=== PATIENT | female | born 1950 | race Caucasian/White ===

== ENCOUNTER 2019-08-08 13:51 | Inpatient (IN) | payer MEDICARE ==
[~2019-08-08] VITALS: Ht 162.6 cm; Wt 74.1 kg
[~2019-08-08 13:51] MED LIST: DULO60CA PO; INSUINJ37 SUBCUT; METF-370 PO
[2019-08-08 14:08] VITALS: BP 148/96
[2019-08-08] MEDS ORDERED: NITROGLYCERIN 0.4 MG SL TAB SL PRN (14:30)
[2019-08-08] MEDS ORDERED: HYDROcodone-ACET 5/325MG TAB PO PRN (14:30)
[2019-08-08] MEDS ORDERED: DEXTROSE (50%) 50ML SYRG IV PRN (14:45)
[2019-08-08] MEDS ORDERED: ALBUTEROL SULF 2.5 MG/0.5ML(0.5%) NEB SOLN NEB PRN (14:45)
[2019-08-08] MEDS ORDERED: IPRATROPIUM BROM 0.5 MG/2.5ML INH SOL NEB PRN (14:45)
[2019-08-08] MEDS ORDERED: ONDANSETRON HCL 4 MG/2 ML VIAL IV PRN (14:45)
[2019-08-08] MEDS ORDERED: ACETAMINOPHEN 325 MG TAB PO PRN (14:45)
[2019-08-08] MEDS ORDERED: VANCOMYCIN PER PHARMACY 0 MG IV SCH (14:45)
[2019-08-08] MEDS: SODIUM CHLORIDE 0.9% 1,000 ML IV SCH (15:27)
[2019-08-08] MEDS ORDERED: HYDR1TAB97 (15:36)
[2019-08-08] MEDS ORDERED: BACL10TA (15:36)
[2019-08-08] MEDS ORDERED: GEMF600T7 (15:36)
[2019-08-08] MEDS ORDERED: GABA300C10 (15:36)
[2019-08-08 16:02] LABS: Basophils # (auto) 0.1 uL; Eosinophils # (auto) 0.2 uL; Eosinophils % (auto) 3.3 % (0.0-7.0); Hematocrit 40.7 % (36.0-46.0); Hemoglobin 13.5 g/dL (12.2-16.2); Lymphocytes # (auto) 2.1 uL; Lymphocytes % (auto) 40.4 % (10.0-50.0); Mean Corpuscular Hemoglobin 31.1 pg (28.0-32.0); Mean Corpuscular Hgb Conc. 33.2 g/dL (32.0-36.0); Mean Corpuscular Volume 93.7 fL (80.0-100.0); Monocytes # (auto) 0.6 uL; Monocytes % (auto) 12.2 % (0.0-12.0); Neutrophils # (auto) 2.2 uL; Neutrophils % (auto) 43.1 % (37.0-80.0); Nucleated Red Blood Cells % 0.1 %; Platelet Count (auto) 112 10^3/uL (140-450); Red Blood Cells 4.35 10^6/uL (4.0-5.20); Red Cell Distribution Width 14.8 % (11.8-14.3); White Blood Cell 5.2 10^3/uL (4.4-10.8)
[2019-08-08 16:15] LABS: Albumin 3.7 g/dL (3.4-5.0); Calcium 9.3 mg/dL (8.5-10.1); Potassium 4.1 mmol/L (3.5-5.1)
[2019-08-08 16:18] LABS: BUN/Creatinine Ratio 15.2; Bilirubin, Total 0.2 mg/dL (0.2-1.0); Total Protein 7.6 g/dL (6.4-8.2)
[2019-08-08] MEDS: MORPHINE SULF INJ 2 MG/ML SYRINGE 1ML IV PRN ×3 (16:57→23:33)
[2019-08-08 17:00] VITALS: BP 152/98
[2019-08-08] MEDS: InsuLIN REG 1unit/0.01ml Soln (100units/ml) SC SCH ×2 (17:00→22:00)
[2019-08-08] MEDS: ACCU-CHEK COMFORT CURVE STRIP VI SCH ×2 (17:06→22:00)
[2019-08-08] MEDS ORDERED: PIPERACILLIN-TAZOB 3.375GM 100 ML IV SCH (18:00)
[2019-08-08] MEDS: PROMETHAZINE W/CODEINE 5 ML ORAL SYRUP PO PRN (18:15)
[2019-08-08] MEDS ORDERED: VANCOMYCIN 1GM/250ML 250 ML IV SCH (20:00)
[2019-08-08 21:55] VITALS: BP 126/64
[2019-08-08] MEDS: GABAPENTIN 300 MG CAP PO SCH (23:32)
[2019-08-08] MEDS: GEMFIBROZIL 600 MG TAB PO SCH (23:32)
[2019-08-08] MEDS: DULoxetine HCL 30 MG CAP PO SCH (23:32)
[2019-08-09] MEDS: PROMETHAZINE W/CODEINE 5 ML ORAL SYRUP PO PRN ×3 (00:48→19:40)
[2019-08-09] MEDS: PIPERACILLIN-TAZOB 3.375GM 100 ML IV SCH ×4 (02:30→19:41)
[2019-08-09] MEDS: MORPHINE SULF INJ 2 MG/ML SYRINGE 1ML IV PRN ×7 (03:25→22:59)
[2019-08-09 03:55] VITALS: BP 126/64
[2019-08-09 05:00] VITALS: BP 115/66
[2019-08-09 06:05] LABS: Basophils # (auto) 0 uL; Basophils % (auto) 0.7 % (0.0-2.0); Eosinophils # (auto) 0.2 uL; Eosinophils % (auto) 4.5 % (0.0-7.0); Hematocrit 38.7 % (36.0-46.0); Hemoglobin 13.1 g/dL (12.2-16.2); Lymphocytes # (auto) 1.5 uL; Lymphocytes % (auto) 28.3 % (10.0-50.0); Mean Corpuscular Hemoglobin 31.5 pg (28.0-32.0); Mean Corpuscular Hgb Conc. 33.9 g/dL (32.0-36.0); Mean Corpuscular Volume 92.8 fL (80.0-100.0); Monocytes # (auto) 0.6 uL; Monocytes % (auto) 10.9 % (0.0-12.0); Neutrophils # (auto) 2.9 uL; Neutrophils % (auto) 55.6 % (37.0-80.0); Platelet Count (auto) 100 10^3/uL (140-450); Red Blood Cells 4.17 10^6/uL (4.0-5.20); Red Cell Distribution Width 14.5 % (11.8-14.3); White Blood Cell 5.2 10^3/uL (4.4-10.8)
[2019-08-09 06:27] LABS: Calcium 8.5 mg/dL (8.5-10.1); Potassium 3.8 mmol/L (3.5-5.1)
[2019-08-09 06:29] LABS: BUN/Creatinine Ratio 18.2
[2019-08-09] MEDS: ACCU-CHEK COMFORT CURVE STRIP VI SCH ×4 (06:44→23:06)
[2019-08-09] MEDS: InsuLIN REG 1unit/0.01ml Soln (100units/ml) SC SCH ×4 (06:44→22:00)
[2019-08-09] MEDS: GABAPENTIN 300 MG CAP PO SCH ×3 (06:45→22:06)
[2019-08-09 08:36] VITALS: BP 128/72
[2019-08-09] MEDS: DULoxetine HCL 30 MG CAP PO SCH ×2 (09:22→22:06)
[2019-08-09] MEDS: BACLOFEN 10 MG TAB PO SCH (10:00)
[2019-08-09] MEDS: GEMFIBROZIL 600 MG TAB PO SCH ×3 (10:00→22:07)
[2019-08-09] MEDS: SODIUM CHLORIDE 0.9% 1,000 ML IV SCH (10:45)
[2019-08-09 13:00] VITALS: BP 110/68
[2019-08-09 17:31] VITALS: BP 121/66
[2019-08-09] MEDS: VANCOMYCIN 1GM/250ML 250 ML IV SCH (17:49)
[2019-08-09 21:52] VITALS: BP 107/72
[2019-08-10] MEDS: PIPERACILLIN-TAZOB 3.375GM 100 ML IV SCH ×4 (01:36→20:39)
[2019-08-10] MEDS: MORPHINE SULF INJ 2 MG/ML SYRINGE 1ML IV PRN ×9 (02:12→23:35)
[2019-08-10 05:05] VITALS: BP 116/68
[2019-08-10 06:06] LABS: Potassium 3.9 mmol/L (3.5-5.1)
[2019-08-10 06:12] LABS: BUN/Creatinine Ratio 17.8; Calcium 8.8 mg/dL (8.5-10.1)
[2019-08-10] MEDS: ACCU-CHEK COMFORT CURVE STRIP VI SCH ×4 (06:36→22:00)
[2019-08-10] MEDS: GABAPENTIN 300 MG CAP PO SCH ×3 (06:36→22:19)
[2019-08-10] MEDS: SODIUM CHLORIDE 0.9% 1,000 ML IV SCH (06:38)
[2019-08-10] MEDS: InsuLIN REG 1unit/0.01ml Soln (100units/ml) SC SCH ×4 (06:45→22:00)
[2019-08-10] MEDS: PROMETHAZINE W/CODEINE 5 ML ORAL SYRUP PO PRN ×3 (06:45→20:43)
[2019-08-10 08:53] VITALS: BP 112/61
[2019-08-10] MEDS: DULoxetine HCL 30 MG CAP PO SCH ×2 (09:34→22:19)
[2019-08-10] MEDS: BACLOFEN 10 MG TAB PO SCH (09:35)
[2019-08-10] MEDS: GEMFIBROZIL 600 MG TAB PO SCH ×2 (09:35→22:00)
[2019-08-10 13:00] VITALS: BP 114/53
[2019-08-10 16:46] VITALS: BP 107/60
[2019-08-10] MEDS: VANCOMYCIN 1GM/250ML 250 ML IV SCH (18:02)
[2019-08-10 22:00] VITALS: BP 128/67
[2019-08-11] MEDS: PIPERACILLIN-TAZOB 3.375GM 100 ML IV SCH ×2 (01:58→08:40)
[2019-08-11] MEDS: MORPHINE SULF INJ 2 MG/ML SYRINGE 1ML IV PRN ×2 (01:59→08:41)
[2019-08-11] MEDS: SODIUM CHLORIDE 0.9% 1,000 ML IV SCH (02:45)
[2019-08-11] MEDS: PROMETHAZINE W/CODEINE 5 ML ORAL SYRUP PO PRN ×2 (03:14→10:01)
[2019-08-11 05:00] VITALS: BP 113/65
[2019-08-11] MEDS: GABAPENTIN 300 MG CAP PO SCH (05:34)
[2019-08-11 05:46] LABS: Basophils # (auto) 0 uL; Basophils % (auto) 0.9 % (0.0-2.0); Eosinophils # (auto) 0.3 uL; Eosinophils % (auto) 5.9 % (0.0-7.0); Hematocrit 39.9 % (36.0-46.0); Hemoglobin 13.6 g/dL (12.2-16.2); Lymphocytes % (auto) 21.3 % (10.0-50.0); Mean Corpuscular Hemoglobin 31.5 pg (28.0-32.0); Mean Corpuscular Volume 92.5 fL (80.0-100.0); Monocytes # (auto) 0.5 uL; Monocytes % (auto) 10.7 % (0.0-12.0); Neutrophils % (auto) 61.2 % (37.0-80.0); Nucleated Red Blood Cells % 0.1 %; Platelet Count (auto) 110 10^3/uL (140-450); Red Blood Cells 4.31 10^6/uL (4.0-5.20); Red Cell Distribution Width 14.6 % (11.8-14.3); White Blood Cell 4.9 10^3/uL (4.4-10.8)
[2019-08-11 06:08] LABS: Potassium 3.9 mmol/L (3.5-5.1)
[2019-08-11 06:18] LABS: Albumin 3.3 g/dL (3.4-5.0); BUN/Creatinine Ratio 11.1; Bilirubin, Total 0.5 mg/dL (0.2-1.0); Calcium 8.8 mg/dL (8.5-10.1); Total Protein 7.2 g/dL (6.4-8.2)
[2019-08-11] MEDS: InsuLIN REG 1unit/0.01ml Soln (100units/ml) SC SCH (06:50)
[2019-08-11] MEDS: ACCU-CHEK COMFORT CURVE STRIP VI SCH (06:50)
[2019-08-11] MEDS: GEMFIBROZIL 600 MG TAB PO SCH (08:40)
[2019-08-11] MEDS: BACLOFEN 10 MG TAB PO SCH (08:40)
[2019-08-11] MEDS: DULoxetine HCL 30 MG CAP PO SCH (08:40)
[2019-08-11 09:32] VITALS: BP 114/68
[2019-08-11 10:19] VITALS: BP 114/68
== END 2019-08-11 11:10 | disposition home or self-care (01) | DRG 202 ==
LOC: TELE-WESTW 13:51
PROVIDERS: ADMIT Internal Medicine; ATTEND Internal Medicine
DX: J45.901 Unspecified asthma with (acute) exacerbation (principal); L03.311 Cellulitis of abdominal wall; E44.1 Mild protein-calorie malnutrition; Z79.4 Long term (current) use of insulin; Z91.19 Patient's noncompliance with other medical treatment and regimen; E78.5 Hyperlipidemia, unspecified; Z68.28 Body mass index [BMI] 28.0-28.9, adult; E11.42 Type 2 diabetes mellitus with diabetic polyneuropathy; M54.9 Dorsalgia, unspecified
CPT/HCPCS: 36415; 71046; 80048; 80053; 82962; 83735; 85025; 87040; 87077; 87186; 87205; G0378; J1815; J2543

== ENCOUNTER 2020-03-11 12:37 | Inpatient (IN) | payer MEDICARE ==
[~2020-03-11] VITALS: Ht 170.2 cm; Wt 74.8 kg
[~2020-03-11 12:37] MED LIST changes: +BACL10TA PO; +GABA300C10 PO; +GEMF600T7; +HYDR1TAB97
[2020-03-11] MEDS ORDERED: SODIUM CHLORIDE 0.9% 1,000 ML IVB ONE (13:00)
[2020-03-11 14:11] LABS: Albumin 3.6 g/dL (3.4-5.0); Calcium 8.8 mg/dL (8.5-10.1); Potassium 4.3 mmol/L (3.5-5.1)
[2020-03-11 14:14] LABS: BUN/Creatinine Ratio 11.3; Bilirubin, Total 0.4 mg/dL (0.2-1.0); Total Protein 7.3 g/dL (6.4-8.2)
[2020-03-11 14:17] LABS: Basophils # (auto) 0 10 ^3/uL (0-0.2); Basophils % (auto) 0.8 % (0.0-2.0); Eosinophils # (auto) 0.1 10 ^3/uL (0-0.8); Eosinophils % (auto) 2.1 % (0.0-7.0); Hematocrit 39.4 % (36.0-46.0); Hemoglobin 13.2 g/dL (12.2-16.2); Lymphocytes # (auto) 2.4 10 ^3/uL (0.4-5.4); Mean Corpuscular Hemoglobin 31.3 pg (28.0-32.0); Mean Corpuscular Hgb Conc. 33.5 g/dL (32.0-36.0); Mean Corpuscular Volume 93.5 fL (80.0-100.0); Monocytes # (auto) 0.5 10 ^3/uL (0-1.3); Monocytes % (auto) 9.1 % (0.0-12.0); Neutrophils # (auto) 2.8 10 ^3/uL (1.6-8.6); Nucleated Red Blood Cells % 0.1 %; Platelet Count (auto) 116 10^3/uL (140-450); Red Blood Cells 4.22 10^6/uL (4.0-5.20); Red Cell Distribution Width 15.1 % (11.8-14.3); White Blood Cell 5.9 10^3/uL (4.4-10.8)
[2020-03-11 14:21] LABS: Blood Alcohol < 3.0 mg/dL (0-5); Magnesium 2.5 mg/dL (1.6-2.6)
[2020-03-11 14:49] LABS: Urine Bacteria NONE SEEN /hpf (None Seen); Urine Blood Negative /uL (Negative); Urine Specific Gravity 1.005 (1.001-1.035); Urine WBC 1 /hpf (0 - 5)
[2020-03-11 15:21] LABS: Alcohol, Urine < 3.0 mg/dL (0-10); Amphetamine Screen, Urine NEGATIVE (NEGATIVE); Barbiturate Scree,Urine NEGATIVE (NEGATIVE); Benzodiazephine Screen, Urine NEGATIVE (NEGATIVE); Cannabinoid Screen, Urine NEGATIVE (NEGATIVE); Cocaine Screen, Urine NEGATIVE (NEGATIVE); Opiate Scree,Urine NEGATIVE (NEGATIVE); Phencyclidine Screen, Urine NEGATIVE (NEGATIVE)
[2020-03-11 15:32] LABS: INR 1.01 (0.9-1.15); Partial Thromboplastin Time 25.1 sec (23.0-31.2)
[2020-03-11] MEDS ORDERED: MORPHINE SULF INJ 2 MG/ML SYRINGE 1ML IV PRN ×2 (16:00→19:45)
[2020-03-11] MEDS ORDERED: NITROGLYCERIN 0.4 MG SL TAB SL PRN ×2 (16:00→19:45)
[2020-03-11] MEDS ORDERED: METO25TA93 PO (17:56)
[2020-03-11] MEDS ORDERED: GLIP5TAB12 PO (17:57)
[2020-03-11] MEDS ORDERED: OMEP-434 PO (17:58)
[2020-03-11] MEDS ORDERED: CHOL100079 PO (18:00)
[2020-03-11] MEDS ORDERED: BIOT10004 PO (18:00)
[2020-03-11] MEDS ORDERED: VITA400T4 PO (18:00)
[2020-03-11] MEDS ORDERED: ASCO500T11 PO (18:00)
[2020-03-11] MEDS ORDERED: CYAN1TAB11 PO (18:00)
[2020-03-11] MEDS ORDERED: INSLISPI SC (18:02)
[2020-03-11] MEDS ORDERED: FENT12DI TD (18:03)
[2020-03-11] MEDS ORDERED: ONDA-144 PO (18:07)
[2020-03-11] MEDS ORDERED: DEXTROSE (50%) 50ML SYRG IV PRN (19:45)
[2020-03-11] MEDS ORDERED: cefTRIAXone 1GM/50ML D5W 50 ML IV ONE (19:45)
[2020-03-11] MEDS ORDERED: DOCUSATE SOD 100 MG CAP PO PRN (19:45)
[2020-03-11] MEDS ORDERED: BACLOFEN 10 MG TAB PO PRN (19:45)
[2020-03-11] MEDS ORDERED: LORazepam 0.5 MG TAB PO PRN (19:45)
[2020-03-11] MEDS ORDERED: ONDANSETRON HCL 4 MG/2 ML VIAL IV PRN (19:45)
[2020-03-11] MEDS ORDERED: HYDROcodone-ACET 5/325MG TAB PO PRN (19:45)
[2020-03-11] MEDS ORDERED: PANTOPRAZOLE 40 MG TAB PO ONE (19:45)
[2020-03-11] MEDS ORDERED: ALUM & MAG HYDROX-SIMETH LIQ(MAALOX) 30 ML PO PRN (19:45)
[2020-03-11] MEDS ORDERED: ACETAMINOPHEN 325 MG TAB PO PRN (19:45)
[2020-03-11] MEDS ORDERED: SODIUM CHLORIDE 0.9% 1,000 ML IV SCH (19:45)
--- NOTE | 2020-03-11 20:40 | NUR ---
Telemetry admit from ER GRISJAKE BERG admitted to Telemetry unit after SBAR received. Patient oriented to GEGE MENENDEZ, RN primary RN, unit, room, bed, and unit policies regarding patient care and visiting hours. Patient now on continuous telemetry monitoring, tele box # 60 and telemetry reading on arrival to unit is SR-70's. Patient placed on bedside oxygen, weighed by bedscale and encouraged to call if they need something. All questions and concerns addressed, patient verbalized understanding.
[2020-03-11] MEDS: MORPHINE SULF INJ 2 MG/ML SYRINGE 1ML IV PRN (21:42)
[2020-03-11] MEDS: GABAPENTIN 300 MG CAP PO SCH (21:42)
[2020-03-11 22:37] LABS: Cholesterol 166 mg/dL (< 200); HDL Cholesterol 39 mg/dL (40-59); LDL Cholesterol 103 mg/dL (< 100); Triglycerides 200 mg/dL (< 150)
[2020-03-12 00:09] VITALS: BP 140/82
[2020-03-12 00:11] VITALS: BP 140/82
[2020-03-12] MEDS: ACCU-CHEK COMFORT CURVE STRIP VI SCH ×2 (00:40→05:34)
[2020-03-12] MEDS: InsuLIN REG 1unit/0.01ml Soln (100units/ml) SC SCH ×2 (00:40→05:34)
[2020-03-12] MEDS: MORPHINE SULF INJ 2 MG/ML SYRINGE 1ML IV PRN ×2 (01:32→05:25)
[2020-03-12] MEDS: GABAPENTIN 300 MG CAP PO SCH (05:25)
[2020-03-12 05:37] VITALS: BP 129/78
[2020-03-12 08:30] VITALS: BP 136/71
--- NOTE | 2020-03-12 08:36 | NUR ---
WOODEN FRAME BUILDER Hospitalist paged to inform of patients wishes to leave AMA. Awaiting call back.
--- NOTE | 2020-03-12 08:40 | NUR ---
AM ROUNDS Patient requesting Dilaudid or fentanyl patch. Patient informed neither of those are available and she has been prescribed morphine and RN unable to give next dose until about 924. Patient offered PRN tylenol for C/O headache but patient refuses. Patient informed RN will page director education MD to inquire about possibly changing med dosage if possible for better pain relief. Patient then states, "forget it, I am just gonna leave home, my is really sick and needs me and I can get my fentanyl patch at home if you wont give me one here." Patient advised to not leave AMA and wait for an MD to see her this morning. Patient refused and continues to state she is leaving. Will page MD. Addendum: 03/12/20 at 0848 by PRABHA CAMPOS RN RN WRONG TIME. CORRECT HOUR IS 0830
[2020-03-12] MEDS ORDERED: cefTRIAXone 1GM/50ML D5W 50 ML IV SCH (09:00)
[2020-03-12] MEDS ORDERED: ENOXAPARIN SOD 40 MG/0.4 ML SYRINGE SC SCH (10:00)
[2020-03-12] MEDS ORDERED: AZITHROMYCIN 500MG/ 250ML 250 ML IV SCH (10:00)
[2020-03-12] MEDS ORDERED: METOPROLOL SUCCINATE XL 50 MG TAB PO SCH (10:00)
[2020-03-12] MEDS ORDERED: DULoxetine HCL 30 MG CAP PO SCH (10:00)
[2020-03-12] MEDS ORDERED: CHOLECALCIFEROL (VITD3) 2,000 UNIT CAP PO SCH (10:00)
[2020-03-12] MEDS ORDERED: CYANOCOBALAMIN 500 MCG TAB PO SCH (10:00)
[2020-03-12] MEDS ORDERED: PANTOPRAZOLE 40 MG TAB PO SCH (10:00)
--- NOTE | 2020-03-12 10:00 | NUR ---
AMA Note JAKE LANDRY states they want to leave the hospital Against Medical Advice (AMA). Patient encouraged to stay for further treatment/stabilization. call center analyst hospitalist notified of patient's wishes. Patient advised of the risks and benefits of leaving AMA. Patient verbalized understanding. Patient encouraged to return to the ER if symptoms do not improve or worsen.
== END 2020-03-12 10:00 | disposition left against medical advice (07) | DRG 917 ==
LOC: EDSEX 12:37 → EDBD 12:37 → ER 12:37 → TELE 12:38 → TELE-WESTW 20:45
PROVIDERS: ADMIT Hospitalist; ATTEND Hospitalist
DX: T40.2X1A Poisoning by other opioids, accidental (unintentional), initial encounter (principal); G93.41 Metabolic encephalopathy; J18.9 Pneumonia, unspecified organism; J44.1 Chronic obstructive pulmonary disease with (acute) exacerbation; F11.20 Opioid dependence, uncomplicated; J44.0 Chronic obstructive pulmonary disease with (acute) lower respiratory infection; I10 Essential (primary) hypertension; E78.5 Hyperlipidemia, unspecified; D69.6 Thrombocytopenia, unspecified; F17.200 Nicotine dependence, unspecified, uncomplicated; G89.29 Other chronic pain; Z96.619 Presence of unspecified artificial shoulder joint; Z96.649 Presence of unspecified artificial hip joint; E11.40 Type 2 diabetes mellitus with diabetic neuropathy, unspecified; Z53.29 Procedure and treatment not carried out because of patient's decision for other reasons; Z79.4 Long term (current) use of insulin; Y92.89 Other specified places as the place of occurrence of the external cause
CPT/HCPCS: 36415; 36600; 51702; 70450; 71045; 80053; 80061; 80307; 80320; 81001; 82805; 82962; 83036; 83735; 84484; 85025; 85610; 85730; 87040; 87081; 96360; 96361; G0378; J0696; J2405

== ENCOUNTER 2020-04-05 11:26 | Inpatient (IN) | payer MEDICARE ==
[~2020-04-05] VITALS: Ht 165.1 cm; Wt 70.8 kg
[~2020-04-05 11:26] MED LIST changes: +ASCO500T11 PO; +BIOT10004 PO; +CHOL100079 PO; +CYAN1TAB11 PO; +FENT12DI TD; -GEMF600T7; +GLIP5TAB12 PO; -HYDR1TAB97; +INSLISPI SC; -INSUINJ37 SUBCUT; -METF-370 PO; +METO25TA93 PO; +OMEP-434 PO; +ONDA-144 PO; +VITA400T4 PO
[2020-04-05] MEDS ORDERED: SODIUM CHLORIDE 0.9% 500 ML IVB ONE (11:45)
[2020-04-05 11:49] LABS: Basophils # (auto) 0.1 10 ^3/uL (0-0.2); Basophils % (auto) 0.8 % (0.0-2.0); Eosinophils # (auto) 0.1 10 ^3/uL (0-0.8); Eosinophils % (auto) 1.4 % (0.0-7.0); Hematocrit 40.4 % (36.0-46.0); Hemoglobin 13.4 g/dL (12.2-16.2); Lymphocytes # (auto) 1.5 10 ^3/uL (0.4-5.4); Lymphocytes % (auto) 21.6 % (10.0-50.0); Mean Corpuscular Hemoglobin 31.3 pg (28.0-32.0); Mean Corpuscular Hgb Conc. 33.2 g/dL (32.0-36.0); Mean Corpuscular Volume 94.2 fL (80.0-100.0); Monocytes # (auto) 0.6 10 ^3/uL (0-1.3); Monocytes % (auto) 7.9 % (0.0-12.0); Neutrophils # (auto) 4.8 10 ^3/uL (1.6-8.6); Neutrophils % (auto) 68.3 % (37.0-80.0); Platelet Count (auto) 128 10^3/uL (140-450); Red Blood Cells 4.29 10^6/uL (4.0-5.20); Red Cell Distribution Width 14.4 % (11.8-14.3)
[2020-04-05 12:09] LABS: Alanine Aminotransferase 17 U/L (13-56); Albumin 3.5 g/dL (3.4-5.0); Anion Gap 6 (5-15); Aspartate Aminotransferase 19 U/L (15-37); BUN/Creatinine Ratio 13.3; Blood Alcohol < 3.0 mg/dL (0-5); Blood Urea Nitrogen 8 mg/dL (7-18); Carbon Dioxide 22 mmol/L (21-32); Chloride 109 mmol/L (98-107); GFR African American 127 mL/min; GFR Non-African American 105 mL/min; Glucose 125 mg/dL (74-106); Potassium 4.1 mmol/L (3.5-5.1); Sodium 137 mmol/L (136-145)
[2020-04-05 12:12] LABS: Alkaline Phosphatase 122 U/L (45-117); Bilirubin, Total 0.3 mg/dL (0.2-1.0); Total Protein 6.9 g/dL (6.4-8.2)
[2020-04-05 12:14] LABS: Acetaminophen < 2.0 ug/mL (10-30); Salicylate 4.2 mg/dL (2.8-20.0)
[2020-04-05] MEDS ORDERED: NITROGLYCERIN 0.4 MG SL TAB SL PRN ×2 (14:15→14:45)
[2020-04-05] MEDS ORDERED: MORPHINE SULF INJ 2 MG/ML SYRINGE 1ML IV PRN ×2 (14:15→14:45)
[2020-04-05] MEDS ORDERED: ONDANSETRON HCL 4 MG/2 ML VIAL IV PRN (14:45)
[2020-04-05] MEDS ORDERED: ACETAMINOPHEN 325 MG TAB PO PRN (14:45)
[2020-04-05] MEDS ORDERED: ALUM & MAG HYDROX-SIMETH LIQ(MAALOX) 30 ML PO PRN (14:45)
[2020-04-05] MEDS ORDERED: DOCUSATE SOD 100 MG CAP PO PRN (14:45)
[2020-04-05] MEDS ORDERED: CLINDAMYCIN 600MG IV 50 ML IV ONE (15:30)
[2020-04-05] MEDS ORDERED: BACLOFEN 10 MG TAB PO PRN (15:30)
[2020-04-05] MEDS ORDERED: ALBUTEROL SULF 2.5 MG/0.5ML(0.5%) NEB SOLN NEB PRN (15:30)
[2020-04-05] MEDS ORDERED: DEXTROSE (50%) 50ML SYRG IV PRN (15:30)
[2020-04-05] MEDS ORDERED: cefTRIAXone 1GM/50ML D5W 50 ML IV ONE (15:30)
[2020-04-05] MEDS: SODIUM CHLORIDE 0.9% 1,000 ML IV SCH ×2 (15:45→18:08)
[2020-04-05] MEDS ORDERED: hydrALAZINE HCL 25 MG TAB PO PRN (15:45)
[2020-04-05] MEDS: InsuLIN REG 1unit/0.01ml Soln (100units/ml) SC SCH ×2 (17:00→21:41)
[2020-04-05] MEDS: ACCU-CHEK COMFORT CURVE STRIP VI SCH ×2 (17:00→21:34)
[2020-04-05] MEDS ORDERED: HYDR-4833 PO (17:40)
[2020-04-05] MEDS ORDERED: IPRATROPIUM BROM 0.5 MG/2.5ML INH SOL NEB SCH ×2 (18:00→22:15)
[2020-04-05 18:28] VITALS: BP 130/72
[2020-04-05 19:21] VITALS: BP 150/96
[2020-04-05 19:35] LABS: Urine Bacteria FEW /hpf (None Seen); Urine Blood Negative /uL (Negative); Urine Hyaline Cast FEW /lpf (0 - 2); Urine Specific Gravity 1.013 (1.001-1.035); Urine WBC 3 /hpf (0 - 5)
[2020-04-05 19:53] LABS: Alcohol, Urine < 3.0 mg/dL (0-10); Amphetamine Screen, Urine NEGATIVE (NEGATIVE); Barbiturate Scree,Urine NEGATIVE (NEGATIVE); Benzodiazephine Screen, Urine NEGATIVE (NEGATIVE); Cannabinoid Screen, Urine NEGATIVE (NEGATIVE); Cocaine Screen, Urine NEGATIVE (NEGATIVE); Opiate Scree,Urine POSITIVE (NEGATIVE); Phencyclidine Screen, Urine NEGATIVE (NEGATIVE)
[2020-04-05 20:02] LABS: Cholesterol 141 mg/dL (< 200); HDL Cholesterol 35 mg/dL (40-59); LDL Cholesterol 69 mg/dL (< 100); Triglycerides 306 mg/dL (< 150)
--- NOTE | 2020-04-05 20:30 | NUR ---
IV removal IV DC'd right wrist with clean sterile technique, catheter fully intact. Pressure dressing applied to site. Patient tolerated well. NOTE: IV infiltrated. Puffy, not tender to touch. No redness noted.
--- NOTE | 2020-04-05 20:55 | NUR ---
IV insertion IV access obtained, via clean sterile technique by inserting 22 gauge catheter at Rt FA after 2 attempt. IV secured properly. No trauma to site. Patient tolerated well.
--- NOTE | 2020-04-05 21:00 | NUR ---
AMBULATION PATIENT AMBULATED TO BATHROOM INDEPENDENTLY WITH NO S/S OF DISTRESS NOTED. PATIENT RETURNED TO BED WITHOUT INCIDENT. REPORTING BACK PAIN RATED LEVEL 10/10.
[2020-04-05] MEDS: MORPHINE SULF INJ 2 MG/ML SYRINGE 1ML IV PRN (21:09)
[2020-04-05] MEDS: CLINDAMYCIN 600MG IV 50 ML IV SCH (21:33)
[2020-04-05] MEDS: GABAPENTIN 300 MG CAP PO SCH (21:34)
[2020-04-05 22:00] VITALS: BP 124/72
[2020-04-05] MEDS: HYDROcodone-ACET 5/325MG TAB PO PRN (23:59)
[2020-04-06] MEDS ORDERED: IPRATROPIUM BROM 0.5 MG/2.5ML INH SOL NEB PRN (00:30)
[2020-04-06] MEDS: MORPHINE SULF INJ 2 MG/ML SYRINGE 1ML IV PRN ×5 (03:09→22:05)
[2020-04-06 05:00] VITALS: BP 121/60
[2020-04-06] MEDS: CLINDAMYCIN 600MG IV 50 ML IV SCH ×3 (06:09→21:08)
[2020-04-06] MEDS: GABAPENTIN 300 MG CAP PO SCH ×3 (06:10→21:08)
[2020-04-06] MEDS: ACCU-CHEK COMFORT CURVE STRIP VI SCH ×4 (06:10→21:09)
[2020-04-06] MEDS: InsuLIN REG 1unit/0.01ml Soln (100units/ml) SC SCH ×4 (06:10→21:11)
[2020-04-06] MEDS: HYDROcodone-ACET 5/325MG TAB PO PRN (06:52)
[2020-04-06 08:38] VITALS: BP 107/66
[2020-04-06] MEDS: DULoxetine HCL 30 MG CAP PO SCH (09:06)
[2020-04-06] MEDS: cefTRIAXone 1GM/50ML D5W 50 ML IV SCH (09:06)
[2020-04-06] MEDS: ENOXAPARIN SOD 40 MG/0.4 ML SYRINGE SC SCH (09:06)
[2020-04-06] MEDS: ASCORBIC ACID 500 MG TAB PO SCH (09:07)
[2020-04-06] MEDS: METOPROLOL SUCCINATE XL 50 MG TAB PO SCH (09:08)
--- NOTE | 2020-04-06 09:30 | NUR ---
Respiratory note: PT SEEN AND ASSESSED FOR PRN MEDNEB TX. HR 70, RR 18, SPO2 96% ON ROOM AIR. BREATH SOUNDS CLEAR T/O. PT DENIES SOB. NO S/S OF DISTRESS. MEDNEB TX NOT INDICATED AT THIS TIME. PT IS AWARE TO CALL FOR RT IF NEEDED.
[2020-04-06] MEDS: LORazepam 0.5 MG TAB PO PRN ×2 (09:48→20:31)
--- NOTE | 2020-04-06 11:12 | NUR ---
PT CRYING AND RESTLESS, STATED HER IS SICK IN ICU. MEDICATED WITH ATIVAN, CONTINUING TO MONITOR CLOSELY.
[2020-04-06 13:00] VITALS: BP 127/63
--- NOTE | 2020-04-06 14:31 | NUR ---
DR ADONIS KELLOGG ROUNDED. TELE PSYCH CONSULT PLACED.
[2020-04-06 16:53] VITALS: BP 122/69
--- NOTE | 2020-04-06 18:05 | NUR ---
Respiratory note: PT RECIEVED ON RA. PT AWAKE AND ALERT. NO RESP DISTRESS NOTED. SPO2 95%, HR 78, RR 18, BS CLEAR T/O. NO PRN TX INDICATED AT THIS TIME. PT AWARE TO CALL FOR PRN TX IF SOB/WHEEZING.
--- NOTE | 2020-04-06 19:40 | NUR ---
Opening Shift Note Assumed care of patient, awake and alert. No S/S of distress/SOB. Fall and safety precautions in place. Call light within reach and able to use. Instructed on POC and to call for assist PRN, patient verbalized understanding and in agreement. Will continue to monitor for changes Q1hr and PRN.
[2020-04-06 22:26] VITALS: BP 119/59
[2020-04-07] MEDS: SODIUM CHLORIDE 0.9% 1,000 ML IV SCH (00:05)
--- NOTE | 2020-04-07 01:30 | NUR ---
TELEPSYCH REPORT CALLED TELEPSYCH TO NOTIFY THAT PATIENT'S TELE PSYCH REPORT/EVALUATION HAS NOT YET BEEN RECEIVED. ARTIFICIAL PLASTIC EYE MAKER STATED HE WOULD FAX REPORT OVER. WILL CONTINUE TO MONITOR.
--- NOTE | 2020-04-07 01:45 | NUR ---
TELEPHYSCH REPORT RECEIVED TELEPSYCH REPORT RECEIVED VIA FAX. REPORT PLACED IN PATIENT'S CHART.
[2020-04-07] MEDS: MORPHINE SULF INJ 2 MG/ML SYRINGE 1ML IV PRN ×2 (02:25→06:27)
[2020-04-07 05:00] VITALS: BP 120/59
[2020-04-07] MEDS: GABAPENTIN 300 MG CAP PO SCH (06:25)
[2020-04-07] MEDS: ACCU-CHEK COMFORT CURVE STRIP VI SCH (06:25)
[2020-04-07] MEDS: CLINDAMYCIN 600MG IV 50 ML IV SCH (06:25)
[2020-04-07] MEDS: InsuLIN REG 1unit/0.01ml Soln (100units/ml) SC SCH (06:26)
--- NOTE | 2020-04-07 07:02 | NUR ---
Respiratory note: RESPIRATORY RATE 14, HEART RATE 64, SPO2 96%, BREATH SOUNDS CLEAR. NO RESPIRATORY DISTRESS AT THIS TIME.
--- NOTE | 2020-04-07 07:30 | NUR ---
Opening note Assumed care of patient from NOC RN. Patient is AOX4 no s/s of SOB or distress noted. Bed is in lowest locked position, call light within reach, and side rails up x2. Updated patient on plan of care and patient verbalized understanding. Will continue to monition q1hr and PRN.
--- NOTE | 2020-04-07 07:47 | NUR ---
Physician rounding DR. Grady at bedside. MD updated patient on plan of care and patient verbalized understanding. New orders received, will follow through.
[2020-04-07 08:31] VITALS: BP 120/59
[2020-04-07] MEDS: cefTRIAXone 1GM/50ML D5W 50 ML IV SCH (09:00)
[2020-04-07 09:04] VITALS: BP 130/50
[2020-04-07] MEDS: ENOXAPARIN SOD 40 MG/0.4 ML SYRINGE SC SCH (10:00)
[2020-04-07] MEDS: DULoxetine HCL 30 MG CAP PO SCH (10:00)
[2020-04-07] MEDS: ASCORBIC ACID 500 MG TAB PO SCH (10:00)
[2020-04-07] MEDS: METOPROLOL SUCCINATE XL 50 MG TAB PO SCH (10:00)
--- NOTE | 2020-04-07 10:40 | NUR ---
Discharge note Discharge instructions given as ordered. Encourage to follow up with PMD as instructed. All questions and concerns addressed. Patient verbalized understanding. IV removed with catheter intact, pressure dressing applied. Telemetry unit returned to ICU. Patient ambulated to [facility], patient stated "I will wait for my daughter down stairs." Patient ambulated with all personal belongings, accompanied by staff member. No distress noted at time of departure.
== END 2020-04-07 10:40 | disposition home or self-care (01) | DRG 917 ==
LOC: EDBD 11:26 → ER 11:26 → TELE-CENTR 11:27
PROVIDERS: ADMIT Hospitalist; ATTEND Family Medicine
DX: T40.2X1A Poisoning by other opioids, accidental (unintentional), initial encounter (principal); J69.0 Pneumonitis due to inhalation of food and vomit; G92 Toxic encephalopathy; F11.20 Opioid dependence, uncomplicated; T42.4X1A Poisoning by benzodiazepines, accidental (unintentional), initial encounter; M19.90 Unspecified osteoarthritis, unspecified site; E11.42 Type 2 diabetes mellitus with diabetic polyneuropathy; I10 Essential (primary) hypertension; D69.6 Thrombocytopenia, unspecified; E78.5 Hyperlipidemia, unspecified; G89.29 Other chronic pain; F17.210 Nicotine dependence, cigarettes, uncomplicated; M54.5 Low back pain; F32.9 Major depressive disorder, single episode, unspecified; M62.838 Other muscle spasm; Z96.642 Presence of left artificial hip joint; J45.909 Unspecified asthma, uncomplicated; Z90.49 Acquired absence of other specified parts of digestive tract; Z90.89 Acquired absence of other organs; Z90.710 Acquired absence of both cervix and uterus; Z82.49 Family history of ischemic heart disease and other diseases of the circulatory system; Z79.899 Other long term (current) drug therapy; Y92.89 Other specified places as the place of occurrence of the external cause; Z80.9 Family history of malignant neoplasm, unspecified; Z79.4 Long term (current) use of insulin
CPT/HCPCS: 36415; 70450; 71046; 80053; 80061; 80307; 80320; 80329; 81001; 82962; 83036; 83880; 84484; 85025; 87086; 94640; G0378; J0696; J1815; J3490

== ENCOUNTER → 2021-05-07 | Outpatient (CLI) | payer MEDICARE ==
[~2021-05-07] MED LIST changes: +HYDR-4833 PO
== END | disposition home or self-care (01) ==
LOC: Rad HDHVI 10:45
PROVIDERS: ATTEND Internal Medicine Cardiovascular Disease
DX: E78.5 Hyperlipidemia, unspecified (principal); R42 Dizziness and giddiness
CPT/HCPCS: 93306

== ENCOUNTER → 2021-10-07 | Outpatient (CLI) | payer MEDICARE ==
[~2021-10-07] VITALS: Ht 30.5 cm; Wt 0.5 kg
[~2021-10-07] MED LIST changes: +KETOROLAC TROMETH 30 MG/ML 1ML VIAL IV ONE; +KETOROLAC TROMETH 60MG/2ML VIAL ONE; +VANCOMYCIN 1GM/250ML 0 ML IV ONE; +VANCOMYCIN 1GM/250ML 250 ML IV ONE
[2021-10-07 11:34] VITALS: BP 143/80
[2021-10-07 13:39] VITALS: BP 135/81
[2021-10-07 16:39] LABS: Basophils # (auto) 0.1 10 ^3/uL (0-0.2); Basophils % (auto) 0.9 % (0.0-2.0); Eosinophils # (auto) 0.1 10 ^3/uL (0-0.8); Eosinophils % (auto) 2.2 % (0.0-7.0); Hematocrit 38.4 % (36.0-46.0); Hemoglobin 13.1 g/dL (12.2-16.2); Lymphocytes # (auto) 2.3 10 ^3/uL (0.4-5.4); Lymphocytes % (auto) 34.3 % (10.0-50.0); Mean Corpuscular Hemoglobin 31.4 pg (28.0-32.0); Mean Corpuscular Hgb Conc. 34.1 g/dL (32.0-36.0); Mean Corpuscular Volume 92.3 fL (80.0-100.0); Monocytes # (auto) 0.6 10 ^3/uL (0-1.3); Monocytes % (auto) 8.7 % (0.0-12.0); Neutrophils # (auto) 3.6 10 ^3/uL (1.6-8.6); Neutrophils % (auto) 53.9 % (37.0-80.0); Nucleated Red Blood Cells % 0.1 %; Red Blood Cells 4.16 10^6/uL (4.0-5.20); Red Cell Distribution Width 14.8 % (11.8-14.3); White Blood Cell 6.6 10^3/uL (4.4-10.8)
[2021-10-07 16:49] LABS: BUN/Creatinine Ratio 21.4; Calcium 9.6 mg/dL (8.5-10.1); Potassium 4.7 mmol/L (3.5-5.1)
[2021-10-07 17:29] LABS: INR 0.97 (0.9-1.15)
== END | disposition home or self-care (01) ==
LOC: CHF HDHVI 11:35
PROVIDERS: ATTEND Internal Medicine Cardiovascular Disease
DX: L02.211 Cutaneous abscess of abdominal wall (principal); E78.5 Hyperlipidemia, unspecified; Z79.899 Other long term (current) drug therapy
CPT/HCPCS: 36415; 80048; 85025; 85610; 85730; 96365; 96375; G0463; J1885; J3370

== ENCOUNTER → 2021-10-09 | Outpatient (CLI) | payer MEDICARE ==
[~2021-10-09] VITALS: Ht 157.5 cm; Wt 59.0 kg
[~2021-10-09] MED LIST changes: -KETOROLAC TROMETH 30 MG/ML 1ML VIAL IV ONE; -KETOROLAC TROMETH 60MG/2ML VIAL ONE; +LIDOCAINE 1% (LOCAL ANESTH.) PF 5ml SDV ID ONE; +SODIUM CHLOR 0.9% PF (SALINE LOCK) 10ML VIAL/SYR IV SCH; -VANCOMYCIN 1GM/250ML 0 ML IV ONE; -VANCOMYCIN 1GM/250ML 250 ML IV ONE
== END | disposition home or self-care (01) ==
LOC: XYW 10:48
PROVIDERS: ATTEND Internal Medicine Cardiovascular Disease
DX: Z45.2 Encounter for adjustment and management of vascular access device (principal); F41.9 Anxiety disorder, unspecified; F32.A Depression, unspecified; F17.200 Nicotine dependence, unspecified, uncomplicated; Z80.8 Family history of malignant neoplasm of other organs or systems; Z90.710 Acquired absence of both cervix and uterus; Z98.891 History of uterine scar from previous surgery
CPT/HCPCS: 36415; 36569; 80202; 96365; 96372; 96375; C1751; G0463; J1885; J3370; J7050

== ENCOUNTER → 2021-10-09 | Outpatient (CLI) | payer MEDICARE ==
[~2021-10-09] MED LIST changes: +KETOROLAC TROMETH 30 MG/ML 1ML VIAL IM ONE; +KETOROLAC TROMETH 60MG/2ML VIAL IM ONE; +KETOROLAC TROMETH 60MG/2ML VIAL ONE; -LIDOCAINE 1% (LOCAL ANESTH.) PF 5ml SDV ID ONE; -SODIUM CHLOR 0.9% PF (SALINE LOCK) 10ML VIAL/SYR IV SCH; +VANCOMYCIN 1GM/250ML 250 ML IV ONE
[2021-10-09 09:08] VITALS: BP 126/72
[2021-10-09 10:37] VITALS: BP 113/58
== END | disposition home or self-care (01) ==
LOC: CHF HDHVI 09:10
PROVIDERS: ATTEND Internal Medicine Cardiovascular Disease
DX: L08.9 Local infection of the skin and subcutaneous tissue, unspecified (principal)
CPT/HCPCS: 36415; 80202; 96365; 96372; 96375; G0463; J1885

== ENCOUNTER → 2021-10-14 | Outpatient (CLI) | payer MEDICARE ==
[~2021-10-14] MED LIST changes: +IOHEXOL 350 MG/ML 100ML IJ ONE; -KETOROLAC TROMETH 30 MG/ML 1ML VIAL IM ONE; -KETOROLAC TROMETH 60MG/2ML VIAL IM ONE; -KETOROLAC TROMETH 60MG/2ML VIAL ONE; +ONDANSETRON HCL 4 MG/2 ML VIAL IV ONE; +ONDANSETRON HCL 4 MG/2 ML VIAL ONE
[2021-10-14 10:46] VITALS: BP 107/69
[2021-10-14 11:44] LABS: Basophils # (auto) 0 10 ^3/uL (0-0.2); Basophils % (auto) 0.8 % (0.0-2.0); Eosinophils # (auto) 0.1 10 ^3/uL (0-0.8); Eosinophils % (auto) 2.4 % (0.0-7.0); Hematocrit 37.4 % (36.0-46.0); Lymphocytes # (auto) 1.7 10 ^3/uL (0.4-5.4); Lymphocytes % (auto) 32.5 % (10.0-50.0); Mean Corpuscular Hemoglobin 31.8 pg (28.0-32.0); Mean Corpuscular Hgb Conc. 34.8 g/dL (32.0-36.0); Mean Corpuscular Volume 91.4 fL (80.0-100.0); Monocytes # (auto) 0.4 10 ^3/uL (0-1.3); Monocytes % (auto) 8.4 % (0.0-12.0); Neutrophils # (auto) 2.9 10 ^3/uL (1.6-8.6); Neutrophils % (auto) 55.9 % (37.0-80.0); Nucleated Red Blood Cells % 0.1 %; Red Cell Distribution Width 14.4 % (11.8-14.3); White Blood Cell 5.2 10^3/uL (4.4-10.8)
[2021-10-14 12:30] LABS: BUN/Creatinine Ratio 14.9; Calcium 9.1 mg/dL (8.5-10.1); Potassium 4.2 mmol/L (3.5-5.1)
[2021-10-14 13:05] VITALS: BP 117/72
== END | disposition home or self-care (01) ==
LOC: Rad HDHVI 10:48
PROVIDERS: ATTEND Internal Medicine Cardiovascular Disease
DX: L02.211 Cutaneous abscess of abdominal wall (principal); K76.0 Fatty (change of) liver, not elsewhere classified; R18.8 Other ascites; M47.814 Spondylosis without myelopathy or radiculopathy, thoracic region; M47.817 Spondylosis without myelopathy or radiculopathy, lumbosacral region; K57.30 Diverticulosis of large intestine without perforation or abscess without bleeding; J98.11 Atelectasis; Z96.642 Presence of left artificial hip joint; Z90.710 Acquired absence of both cervix and uterus
CPT/HCPCS: 36415; 74177; 80048; 85025; 96365; 96375; G0463; J1642; J2405; J3370; Q9967

== ENCOUNTER → 2021-10-15 | Outpatient (CLI) | payer MEDICARE ==
[~2021-10-15] MED LIST changes: -IOHEXOL 350 MG/ML 100ML IJ ONE; -ONDANSETRON HCL 4 MG/2 ML VIAL IV ONE; -ONDANSETRON HCL 4 MG/2 ML VIAL ONE
[2021-10-15 09:07] VITALS: BP 94/64
[2021-10-15 10:22] VITALS: BP 109/61
== END | disposition home or self-care (01) ==
LOC: CHF HDHVI 09:12
PROVIDERS: ATTEND Internal Medicine Cardiovascular Disease
DX: L02.211 Cutaneous abscess of abdominal wall (principal)
CPT/HCPCS: 96365; G0463; J1642; J3370

== ENCOUNTER → 2021-10-16 | Outpatient (CLI) | payer MEDICARE ==
[2021-10-16 09:00] VITALS: BP 107/69
[2021-10-16 10:17] VITALS: BP 101/68
== END | disposition home or self-care (01) ==
LOC: CHF HDHVI 09:01
PROVIDERS: ATTEND Internal Medicine Cardiovascular Disease
DX: B99.9 Unspecified infectious disease (principal)
CPT/HCPCS: 96365; G0463; J1642; J3370

== ENCOUNTER → 2021-10-18 | Outpatient (CLI) | payer MEDICARE ==
[2021-10-18 09:08] VITALS: BP 125/70
[2021-10-18 10:22] VITALS: BP 119/69
== END | disposition home or self-care (01) ==
LOC: CHF HDHVI 08:58
PROVIDERS: ATTEND Internal Medicine Cardiovascular Disease
DX: R10.0 Acute abdomen (principal)
CPT/HCPCS: 96365; G0463; J1642; J3370

== ENCOUNTER → 2021-10-21 | Outpatient (CLI) | payer MEDICARE ==
[2021-10-21 10:27] VITALS: BP 118/70
[2021-10-21 11:40] VITALS: BP 101/63
== END | disposition home or self-care (01) ==
LOC: CHF HDHVI 10:24
PROVIDERS: ATTEND Internal Medicine Cardiovascular Disease
DX: R10.0 Acute abdomen (principal); L02.211 Cutaneous abscess of abdominal wall
CPT/HCPCS: 96365; G0463; J1642; J3370

== ENCOUNTER → 2021-10-22 | Outpatient (CLI) | payer MEDICARE ==
[~2021-10-22] VITALS: Ht 160 cm; Wt 69.9 kg
[2021-10-22 08:57] VITALS: BP 104/38
[2021-10-22 10:15] VITALS: BP 115/68
== END | disposition home or self-care (01) ==
LOC: CHF HDHVI 08:58
PROVIDERS: ATTEND Internal Medicine Cardiovascular Disease
DX: R10.0 Acute abdomen (principal)
CPT/HCPCS: 96365; G0463; J3370

== ENCOUNTER → 2021-10-24 | Outpatient (CLI) | payer MEDICARE ==
[~2021-10-24] MED LIST changes: -VANCOMYCIN 1GM/250ML 250 ML IV ONE
[2021-10-24 15:40] LABS: Basophils # (auto) 0.2 10 ^3/uL (0-0.2); Basophils % (auto) 3.1 % (0.0-2.0); Eosinophils # (auto) 0.2 10 ^3/uL (0-0.8); Eosinophils % (auto) 2.6 % (0.0-7.0); Hematocrit 40.5 % (36.0-46.0); Hemoglobin 13.8 g/dL (12.2-16.2); Lymphocytes # (auto) 2.2 10 ^3/uL (0.4-5.4); Lymphocytes % (auto) 34.6 % (10.0-50.0); Mean Corpuscular Hemoglobin 31.6 pg (28.0-32.0); Mean Corpuscular Hgb Conc. 34.1 g/dL (32.0-36.0); Mean Corpuscular Volume 92.6 fL (80.0-100.0); Monocytes # (auto) 0.5 10 ^3/uL (0-1.3); Monocytes % (auto) 7.5 % (0.0-12.0); Neutrophils # (auto) 3.4 10 ^3/uL (1.6-8.6); Neutrophils % (auto) 52.2 % (37.0-80.0); Red Blood Cells 4.37 10^6/uL (4.0-5.20); White Blood Cell 6.5 10^3/uL (4.4-10.8)
== END | disposition home or self-care (01) ==
LOC: LAB 11:06
PROVIDERS: ATTEND Internal Medicine Cardiovascular Disease
DX: L02.219 Cutaneous abscess of trunk, unspecified (principal)
CPT/HCPCS: 36415; 80202; 85025

== ENCOUNTER → 2021-12-09 | Outpatient (CLI) | payer MEDICARE ==
[2021-12-09 12:48] LABS: Urine Blood Negative /uL (Negative); Urine Specific Gravity 1.008 (1.001-1.035)
== END | disposition home or self-care (01) ==
LOC: LAB 09:46
PROVIDERS: ATTEND Internal Medicine Cardiovascular Disease
DX: N39.0 Urinary tract infection, site not specified (principal)
CPT/HCPCS: 81003

== ENCOUNTER → 2022-02-03 | Outpatient (CLI) | payer MEDICARE | END | disposition home or self-care (01) | LOC: Rad HDHVI 13:23 | PROVIDERS: ATTEND Internal Medicine Cardiovascular Disease | DX: M25.552 Pain in left hip (principal) ==

== ENCOUNTER → 2022-03-12 | Outpatient (CLI) | payer MEDICARE ==
[2022-03-12 12:23] LABS: Urine Blood Negative /uL (Negative); Urine Specific Gravity 1.025 (1.001-1.035)
[2022-03-12 12:38] LABS: BUN/Creatinine Ratio 35.2; Calcium 9.6 mg/dL (8.5-10.1); Potassium 4.5 mmol/L (3.5-5.1)
[2022-03-12 12:39] LABS: Basophils # (auto) 0.1 10 ^3/uL (0-0.2); Basophils % (auto) 0.6 % (0.0-2.0); Eosinophils # (auto) 0 10 ^3/uL (0-0.8); Eosinophils % (auto) 0.6 % (0.0-7.0); Hematocrit 48.9 % (36.0-46.0); Lymphocytes # (auto) 3.2 10 ^3/uL (0.4-5.4); Lymphocytes % (auto) 39.9 % (10.0-50.0); Mean Corpuscular Hemoglobin 31.9 pg (28.0-32.0); Mean Corpuscular Hgb Conc. 32.6 g/dL (32.0-36.0); Mean Corpuscular Volume 97.6 fL (80.0-100.0); Monocytes # (auto) 0.7 10 ^3/uL (0-1.3); Monocytes % (auto) 8.5 % (0.0-12.0); Neutrophils # (auto) 4.1 10 ^3/uL (1.6-8.6); Neutrophils % (auto) 50.4 % (37.0-80.0); Nucleated Red Blood Cells % 0.1 %; Red Blood Cells 5.01 10^6/uL (4.0-5.20); Red Cell Distribution Width 14.3 % (11.8-14.3); White Blood Cell 8.1 10^3/uL (4.4-10.8)
[2022-03-12 12:51] LABS: INR 0.92 (0.9-1.15); Partial Thromboplastin Time 25.7 sec (24.6-33.4)
== END | disposition home or self-care (01) ==
LOC: Rad HDHVI 09:56
PROVIDERS: ATTEND Internal Medicine Cardiovascular Disease
DX: I70.0 Atherosclerosis of aorta (principal); M79.89 Other specified soft tissue disorders; N39.0 Urinary tract infection, site not specified; D53.8 Other specified nutritional anemias; Z01.818 Encounter for other preprocedural examination
CPT/HCPCS: 36415; 71046; 80048; 81003; 82962; 85025; 85610; 85730; 87086

== ENCOUNTER → 2022-04-07 | Outpatient (CLI) | payer MEDICARE ==
[~2022-04-07] MED LIST changes: +READI-CAT 2 (BARIUM SULF)(VANILLA SMOOTHIE) 450ML ONE
[2022-04-07 15:51] LABS: Urine Blood Negative /uL (Negative)
[2022-04-07 15:57] LABS: BUN/Creatinine Ratio 36.5; Calcium 9.3 mg/dL (8.5-10.1); Potassium 4.3 mmol/L (3.5-5.1)
[2022-04-07 17:20] LABS: Basophils # (auto) 0.1 10 ^3/uL (0-0.2); Eosinophils # (auto) 0.1 10 ^3/uL (0-0.8); Mean Corpuscular Volume 101.6 fL (80.0-100.0); Nucleated Red Blood Cells % 0.1 %
[2022-04-07 17:25] LABS: Basophils % (auto) 1.1 % (0.0-2.0); Eosinophils % (auto) 1.1 % (0.0-7.0); Hematocrit 53.5 % (36.0-46.0); Hemoglobin 17.6 g/dL (12.2-16.2); Lymphocytes # (auto) 3.1 10 ^3/uL (0.4-5.4); Lymphocytes % (auto) 35.9 % (10.0-50.0); Mean Corpuscular Hemoglobin 33.4 pg (28.0-32.0); Mean Corpuscular Hgb Conc. 32.9 g/dL (32.0-36.0); Monocytes # (auto) 0.7 10 ^3/uL (0-1.3); Monocytes % (auto) 7.6 % (0.0-12.0); Neutrophils # (auto) 4.7 10 ^3/uL (1.6-8.6); Neutrophils % (auto) 54.3 % (37.0-80.0); Red Blood Cells 5.26 10^6/uL (4.0-5.20); Red Cell Distribution Width 15.4 % (11.8-14.3); White Blood Cell 8.7 10^3/uL (4.4-10.8)
== END | disposition home or self-care (01) ==
LOC: Rad HDHVI 11:02
PROVIDERS: ATTEND Internal Medicine Cardiovascular Disease
DX: K57.30 Diverticulosis of large intestine without perforation or abscess without bleeding (principal); M47.815 Spondylosis without myelopathy or radiculopathy, thoracolumbar region; I70.0 Atherosclerosis of aorta; N39.0 Urinary tract infection, site not specified; D64.9 Anemia, unspecified; I10 Essential (primary) hypertension
CPT/HCPCS: 36415; 74176; 80048; 81003; 85025; 87086

== ENCOUNTER → 2022-04-11 | Outpatient (CLI) | payer MEDICARE ==
[~2022-04-11] MED LIST changes: +KETOROLAC TROMETH 30 MG/ML 1ML VIAL IV ONE; +KETOROLAC TROMETH 60MG/2ML VIAL ONE; +PIPERACILLIN-TAZO 4.5GM 100 ML IV ONE; -READI-CAT 2 (BARIUM SULF)(VANILLA SMOOTHIE) 450ML ONE
[2022-04-11 09:32] VITALS: BP 152/86
[2022-04-11 13:02] VITALS: BP 149/96
== END | disposition home or self-care (01) ==
LOC: Rad HDHVI 09:35
PROVIDERS: ATTEND Internal Medicine Cardiovascular Disease
DX: N39.0 Urinary tract infection, site not specified (principal); I10 Essential (primary) hypertension
CPT/HCPCS: 74018; 96365; 96366; 96375; G0463; J1885; J2543

== ENCOUNTER → 2022-05-28 | Outpatient (CLI) | payer MEDICARE ==
[~2022-05-28] MED LIST changes: +CYANOCOBALAMIN (B-12) 1000 MCG/1 ML VIAL IM ONE; +CYANOCOBALAMIN (B-12) 1000 MCG/1 ML VIAL ONE; -KETOROLAC TROMETH 30 MG/ML 1ML VIAL IV ONE; +KETOROLAC TROMETH 60MG/2ML VIAL IM ONE; -PIPERACILLIN-TAZO 4.5GM 100 ML IV ONE; +levoFLOXacin 500MG 100 ML IV ONE; +methylPREDNISolone SOD SUCC 125 MG/2 ML VL IV ONE; +methylPREDNISolone SOD SUCC 125 MG/2 ML VL ONE
[2022-05-28 11:05] VITALS: BP 136/67
[2022-05-28 12:53] VITALS: BP 119/58
== END | disposition home or self-care (01) ==
LOC: Rad HDHVI 11:07
PROVIDERS: ATTEND Internal Medicine Cardiovascular Disease
DX: J06.9 Acute upper respiratory infection, unspecified (principal); M62.81 Muscle weakness (generalized); J18.9 Pneumonia, unspecified organism; R06.02 Shortness of breath; R53.83 Other fatigue; R05.9 Cough, unspecified; I10 Essential (primary) hypertension
CPT/HCPCS: 71046; 94640; 96365; 96372; 96375; G0463; J1885; J1956; J2930; J3420

== ENCOUNTER 2022-06-07 12:30 | Emergency (ER) | payer MEDICARE, OTHER ==
[~2022-06-07] VITALS: Ht 160 cm; Wt 67.0 kg
[~2022-06-07 12:30] MED LIST changes: -CYANOCOBALAMIN (B-12) 1000 MCG/1 ML VIAL IM ONE; -CYANOCOBALAMIN (B-12) 1000 MCG/1 ML VIAL ONE; -KETOROLAC TROMETH 60MG/2ML VIAL IM ONE; -KETOROLAC TROMETH 60MG/2ML VIAL ONE; -levoFLOXacin 500MG 100 ML IV ONE; -methylPREDNISolone SOD SUCC 125 MG/2 ML VL IV ONE; -methylPREDNISolone SOD SUCC 125 MG/2 ML VL ONE
[2022-06-07] MEDS ORDERED: HYDROcodone-ACET 5/325MG TAB PO ONE (13:00)
[2022-06-07 13:06] VITALS: BP 147/103
== END 2022-06-07 14:49 | disposition home or self-care (01) ==
LOC: ER 12:30
DX: S16.1XXA Strain of muscle, fascia and tendon at neck level, initial encounter (principal); R51.9 Headache, unspecified; M54.6 Pain in thoracic spine; V43.62XA Car passenger injured in collision with other type car in traffic accident, initial encounter; Y93.89 Activity, other specified; Y92.89 Other specified places as the place of occurrence of the external cause; Y99.8 Other external cause status
CPT/HCPCS: 70450; 72040; 72070

== ENCOUNTER → 2022-06-30 | Outpatient (CLI) | payer MEDICARE | END | disposition home or self-care (01) | LOC: Rad HDHVI 10:17 | PROVIDERS: ATTEND Internal Medicine Cardiovascular Disease | DX: M47.816 Spondylosis without myelopathy or radiculopathy, lumbar region (principal); M51.36 Other intervertebral disc degeneration, lumbar region; M12.88 Other specific arthropathies, not elsewhere classified, other specified site; M48.04 Spinal stenosis, thoracic region | CPT/HCPCS: 72128; 72131 ==

== ENCOUNTER → 2023-02-25 | Outpatient (CLI) | payer MEDICARE ==
[~2023-02-25] MED LIST changes: -DULO60CA PO; +DULO60CA41 PO; +GABA-1250 PO; -GABA300C10 PO
== END | disposition home or self-care (01) ==
LOC: Rad HDHVI 08:02
PROVIDERS: ATTEND Internal Medicine Cardiovascular Disease
DX: I07.1 Rheumatic tricuspid insufficiency (principal); I10 Essential (primary) hypertension; I73.9 Peripheral vascular disease, unspecified
CPT/HCPCS: 93306

== ENCOUNTER → 2023-03-04 | Outpatient (CLI) | payer MEDICARE ==
[~2023-03-04] VITALS: Ht 160 cm; Wt 63.5 kg
[~2023-03-04] MED LIST changes: +ADENOSINE 53 MG in GIVE UN-DILUTED 0 ML IV ONE; +ADENOSINE 90 MG/30 ML INJ IV ONE
== END | disposition home or self-care (01) ==
LOC: Rad HDHVI 13:12
PROVIDERS: ATTEND Internal Medicine Cardiovascular Disease
DX: Z01.810 Encounter for preprocedural cardiovascular examination (principal); I10 Essential (primary) hypertension; E11.9 Type 2 diabetes mellitus without complications; E78.00 Pure hypercholesterolemia, unspecified; F17.210 Nicotine dependence, cigarettes, uncomplicated; Z79.899 Other long term (current) drug therapy
CPT/HCPCS: 78452; 93005; 96374; 96375; A9500; J0153

== ENCOUNTER → 2023-07-15 | Outpatient (CLI) | payer MEDICARE ==
[~2023-07-15] MED LIST changes: -ADENOSINE 53 MG in GIVE UN-DILUTED 0 ML IV ONE; -ADENOSINE 90 MG/30 ML INJ IV ONE; +MEROPENEM 1GM IVPB 50 ML IV ONE
[2023-07-15 12:26] VITALS: BP 120/76; PULSE 73; RESP 20; O2SAT 96
[2023-07-15 14:48] VITALS: BP 139/68; PULSE 70; RESP 18; O2SAT 96
== END | disposition home or self-care (01) ==
LOC: CHF HDHVI 12:34
PROVIDERS: ATTEND Internal Medicine Cardiovascular Disease
DX: N39.0 Urinary tract infection, site not specified (principal); I10 Essential (primary) hypertension; E11.9 Type 2 diabetes mellitus without complications; E78.00 Pure hypercholesterolemia, unspecified; Z87.891 Personal history of nicotine dependence; Z79.899 Other long term (current) drug therapy
CPT/HCPCS: 96365; 96366; G0463; J2185

== ENCOUNTER → 2023-07-16 | Outpatient (CLI) | payer MEDICARE ==
[~2023-07-16] MED LIST changes: +KETOROLAC TROMETH 60MG/2ML VIAL ONE
[2023-07-16 09:00] VITALS: BP 119/63; PULSE 61; RESP 16; O2SAT 97
[2023-07-16] MEDS: KETOROLAC TROMETH 30 MG/ML 1ML VIAL IV ONE (09:35)
[2023-07-16] MEDS: KETOROLAC TROMETH 60MG/2ML VIAL IM ONE (09:36)
[2023-07-16] MEDS: MEROPENEM 1GM IVPB 50 ML IV ONE (09:39)
[2023-07-16 11:26] VITALS: BP 143/84; PULSE 62; RESP 16; O2SAT 97
== END | disposition home or self-care (01) ==
LOC: CHF HDHVI 08:55
PROVIDERS: ATTEND Internal Medicine Cardiovascular Disease
DX: N39.0 Urinary tract infection, site not specified (principal); M25.559 Pain in unspecified hip; I10 Essential (primary) hypertension; E78.00 Pure hypercholesterolemia, unspecified; E11.9 Type 2 diabetes mellitus without complications; Z79.899 Other long term (current) drug therapy; Z87.891 Personal history of nicotine dependence
CPT/HCPCS: 96365; 96366; 96372; 96375; G0463; J1885; J2185

== ENCOUNTER → 2023-07-20 | Outpatient (CLI) | payer MEDICARE ==
[~2023-07-20] MED LIST changes: -KETOROLAC TROMETH 60MG/2ML VIAL ONE; -MEROPENEM 1GM IVPB 50 ML IV ONE
[2023-07-20 13:15] VITALS: BP 106/50; PULSE 58; RESP 20; O2SAT 95
[2023-07-20] MEDS: MEROPENEM 1GM IVPB 50 ML IV ONE ×2 (13:15→13:17)
[2023-07-20 15:25] VITALS: BP 110/62; PULSE 61; RESP 20; O2SAT 95
== END | disposition home or self-care (01) ==
LOC: CHF HDHVI 12:54
PROVIDERS: ATTEND Internal Medicine Cardiovascular Disease
DX: N39.0 Urinary tract infection, site not specified (principal); I10 Essential (primary) hypertension; E11.9 Type 2 diabetes mellitus without complications; E78.00 Pure hypercholesterolemia, unspecified; Z79.899 Other long term (current) drug therapy; Z87.891 Personal history of nicotine dependence
CPT/HCPCS: 96365; 96366; J2185

== ENCOUNTER → 2024-03-14 | Outpatient (CLI) | payer MEDICARE ==
[~2024-03-14] MED LIST changes: -GLIP5TAB12 PO; +GLIP5TAB21 PO
== END | disposition home or self-care (01) ==
LOC: Rad HDHVI 10:08
PROVIDERS: ATTEND Internal Medicine Cardiovascular Disease
DX: I63.9 Cerebral infarction, unspecified (principal)
CPT/HCPCS: 70450

== ENCOUNTER → 2024-03-16 | Outpatient (CLI) | payer MEDICARE | END | disposition home or self-care (01) | LOC: Rad HDHVI 15:00 | PROVIDERS: ATTEND Internal Medicine Cardiovascular Disease | DX: I10 Essential (primary) hypertension (principal); R42 Dizziness and giddiness | CPT/HCPCS: 93880 ==

== ENCOUNTER 2024-07-17 10:10 | Inpatient (IN) | payer MEDICARE ==
[~2024-07-17] VITALS: Ht 165.1 cm; Wt 90.9 kg
--- NOTE | 2024-07-17 10:21 | ED.PDOC ---
GI ASSESSMENT HPI Comments 74 year old female JERROD presents to the ED with chief complaint of abdominal pain. Patient reports that she has been experiencing suprapubic abdominal pain with associated abdominal masses, radiation of pain to the back, and nausea and vomiting occurring 2 days ago. Patient relays that she has had multiple abdominal surgeries such as hernia repairs and colon resection. Patient denies any diarrhea, chest pain, dizziness, headache, fever, or chills. Time Seen by MD: 10:16 Primary Care Provider: Mathew Reviewed Notes: Nurses Notes, Team Otr Truck Driver Notes, Medications, Allergies Allergies: Coded Allergies: NO KNOWN ALLERGIES (Unverified , 10/09/21) Home Meds Active Scripts Insulin Lispro (Human) (Humalog) 100 Unit/Ml Inj, 45 UNIT SC BID for 30 Days, INJ Prov:MARIANELA OCHOA Pharmacist 03/11/20 Reported Medications Hydrocodone-Acetaminophen ([place] 5/325MG) 1 Tab Tb, 1 TAB PO, #60 TAB 04/05/20 Ondansetron (Zofran) 4 Mg Tab, 1 TAB PO TIDP PRN for NAUSEA / VOMITING, #20 TAB ODT 03/11/20 Fentanyl (Fentanyl) 12 Mcg/Hr Dis, 1 PATCH TD Q3DAYS, DIS 03/11/20 Alpha Tocopheryl Acid Succinat (VITAMIN E) 400 Unit Tab, 400 UNIT PO DAILY, TAB 03/11/20 Cholecalciferol (VITAMIN D3) 1,000 Unit Chw, 1000 UNIT PO DAILY, TAB.CHEW 03/11/20 Cyanocobalamin (Vitamin B12) 1,000 Mcg Tab, 2000 MCG PO DAILY, TAB 03/11/20 Biotin (Vitamin H) (Biotin) 1,000 Mcg Tab, 2000 MCG PO DAILY, TAB 03/11/20 Ascorbic Acid (VITAMIN C TABLET) 500 Mg Tb, 1 TAB PO DAILY, #30 TAB 3 Refills 03/11/20 Omeprazole Magnesium (Omeprazole) 20 Mg Tab, 20 MG PO BID, TAB 03/11/20 Glipizide (Glipizide) 5 Mg Tab, 0.5 TAB PO QAM, MG 03/11/20 Metoprolol Succinate (Metoprolol Succinate Er) 25 Mg Tab, 1 TAB PO BID, #30 TAB 5 Refills 03/11/20 Baclofen (Baclofen) 10 Mg Tab, 10 MG PO PRN PRN for MUSCLE SPASMS 08/08/19 Gabapentin (Gabapentin) 300 Mg Cap, 2 CAP PO TID 08/08/19 Duloxetine Hcl (Cymbalta) 60 Mg Cap, 1 CAP PO DAILY, #90 CAP 3 Refills 04/21/14 Information Source: Patient, Emergency Med Personnel Mode of Arrival: EMS Timing: Days Duration: Since onset Prehospital treatment: None Quality: Sharp Vomitus: Watery Stool: Normal Severity: Moderate Recent: None Recent Hx of: None Pain Location: Suprapubic Modifying Factors: Nothing Associated sign and symptoms: Nausea, Vomiting, Abdominal Pain Past Medical History PAST MEDICAL HISTORY: Arthritis, Asthma, DM, HTN, Seizures Past Medical History (Other): Diverticulitis Surgical History: Appendectomy, , Hernia Repair, Hysterectomy, Tonsillectomy Surgical History (Other): Colon resection PEN OR PENCIL ASSEMBLY MACHINE OPERATOR History: No Pertinent PEN OR PENCIL ASSEMBLY MACHINE OPERATOR History Family History Family History: Reviewed,noncontributory to illness Social History Smoker: Cigarettes Alcohol: Occasionally Drugs: Denies Drug Use Lives In: Home Constitutional: denies: chills, diaphoresis, fatigue, fever, malaise, sweats, weakness, others EENTM: denies: blurred vision, double vision, ear bleeding, ear discharge, ear drainage, ear pain, ear ringing, eye pain, eye redness, hearing loss, mouth pain, mouth swelling, nasal discharge, nose bleeding, nose congestion, nose pain, photophobia, tearing, throat pain, throat swelling, voice changes, others Respiratory: denies: cough, hemoptysis, orthopnea, SOB at rest, shortness of breath, SOB with excertion, stridor, wheezing, others Cardiovascular: denies: chest pain, dizzy spells, diaphoresis, Dyspnea on exertion, edema, irregular heart beat, left arm pain, lightheadedness, palpitations, PND, syncope, others Gastrointestinal: reports: abdominal pain, nausea, vomiting; denies: abdomen distended, blood streaked bowels, constipated, diarrhea, dysphagia, difficulty swallowing, hematemesis, melena, poor appetite, poor fluid intake, rectal bleeding, rectal pain, others Genitourinary: denies: abnormal vagina bleeding, burning, dyspareunia, dysuria, flank pain, frequency, hematuria, incontinence, pain, , vagina discharge, urgency, others Neurological: denies: dizziness, fainting, headache, left sided numbness, left sided weakness, numbness, paresthesia, pre-existing deficit, right sided numbness, right sided weakness, seizure, speech problems, tingling, tremors, weakness, others Musculoskeletal: denies: back pain, gout, joint pain, joint swelling, muscle pain, muscle stiffness, neck pain, others Integumetry: denies: bruises, change in color, change in hair/nails, dryness, laceration, lesions, lumps, rash, wounds, others Allergic/Immunocompromised: denies: Difficulty Healing, Frequent Infections, Hives, Itching, others Hematologic/Lymphatic: denies: anemia, blood clots, easy bleeding, easy bruising, swollen glands, others Endocrine: denies: excessive hunger, excessive sweating, excessive thirst, excessive urination, flushing, intolerance to cold, intolerance to heat, unexplained weight gain, unexplained weight loss, others Psychiatric: denies: anxiety, bipolar disorder, depression, hopeless, panic disorder, schizophrenia, sleepless, suicidal, others All Other Systems: Reviewed and Negative Physical Exam General Appearance: Moderate Distress, Normal HEENT: Normal ENT Inspection, PERRL/EOMI Neck: Full Range of Motion, Non-Tender, Normal, Normal Inspection Respiratory: Chest Non-Tender, Lungs Clear, No Accessory Muscle Use, No Respiratory Distress, Normal Breath Sounds Cardiovascular: No Edema, No JVD, No Murmur, No Gallop, Normal Peripheral Pulses, Regular Rate/Rhythm Breast Exam: Deferred Gastrointestinal: No Organomegaly, Non Tender, No Pulsatile Mass, Normal Bowel Sounds, Soft Genitalia: Deferred Pelvic: Deferred Rectal: Deferred Extremities: No calf tenderness, Normal capillary refill, Normal inspection, Normal range of motion, Non-tender, No pedal edema Musculoskeletal : Apperance: Normal Neurologic: Alert, heel boom operator II-XII nml as Tested, No Motor Deficits, Normal Affect, Normal Mood, No Sensory Deficits Cerebellar Function: NOT DONE Reflexes: NOT DONE Skin: Dry, Normal Color, Warm Peripheral Pulses: 3+ Radial (R), 3+ Radial (L) Lymphatic: No Adenopathy Was a procedure done? Was a procedure done?: No GI differential Dx Differential Diagnosis: Constipation, Diverticular disease, Esophagitis, Gastritis/PUD, Gastroenteritis X-Ray, Labs, Meds, VS Vital Signs Date Time Temp Pulse Resp B/P (MAP) Pulse Ox O2 Delivery O2 Flow Rate FiO2 07/17/24 10:58 79 16 135/85 07/17/24 10:52 79 16 100 Room Air* 0 21 07/17/24 10:52 98.4 79 16 135/85 (102) 100 98.4 07/17/24 10:15 98.6 74 16 116/73 (87) 96 Current Medications Medications (Trade) Dose Ordered Sig/Chaz Route Start Time Stop Time Status Last Admin Sodium Chloride 1,000 ml @ 1,000 mls/hr Q1H ONCE IV 07/17/24 10:30 07/17/24 11:29 DC 07/17/24 10:58 Morphine Sulfate 4 mg ONCE ONCE IV 07/17/24 10:30 07/17/24 10:31 DC 07/17/24 10:58 Ondansetron HCl (Zofran) 4 mg ONCE ONCE IV 07/17/24 10:30 07/17/24 10:31 DC 07/17/24 10:58 Patient alert. Complaining of abdominal pain. Vitals stable. Answering all questions. Establish intravenous access. Was given fluids. Was given morphine. Was given Zofran. Continues to have abdominal pain. History of abdominal surgery. She did have a bowel movement. Reviewed her previous visit. Explained to the patient. Continue cardiac monitoring. Time of 1ST Reevaluation: 11:16 Reevaluation 1ST: Unchanged Patient Education/Counseling: Diagnosis, Treatment Family Education/Counseling: No Family Present Departure 1 Departure Time of Disposition: 11:34 Impression: Primary Impression: ABDOMINAL PAIN, OTHER SPECIFIED SITE Additional Impression: Non-specific colitis Disposition: ADMITTED INPATIENT Admit to: Med Surg Condition: Guarded Critical Care Note Critical Care Time?: No Stability Stability form required: No Heart Score Heart Score: Heart Score Response (Comments) Value History Slightly Suspicious 0 EKG Normal 0 Age >65 2 Risk Factors >3 or Hx ASHD 2 Troponin N/A 0 Total 4 I personally scribed for PEDRO PABLO KAPLAN MD ([email or web address]) on 07/17/24 at 10:21. E lectronically submitted by Logan Hartmann ([email or web address]). PEDRO PABLO KAPLAN MD Jul 17, 2024 10:21
[2024-07-17 10:52] VITALS: PULSE 79; RESP 16; O2SAT 100
[2024-07-17] MEDS: ONDANSETRON HCL 4 MG/2 ML VIAL IV ONE ×2 (10:58→15:37)
[2024-07-17] MEDS: SODIUM CHLORIDE 0.9% 1,000 ML IV ONE (10:58)
[2024-07-17] MEDS: MORPHINE SULFATE 4 MG/ML SYR/VIAL IV ONE ×2 (10:58→15:37)
[2024-07-17 11:46] LABS: Basophils # (auto) 0.1 10 ^3/uL (0-0.2); Basophils % (auto) 0.6 % (0.0-2.0); Eosinophils # (auto) 0.1 10 ^3/uL (0-0.8); Eosinophils % (auto) 1.6 % (0.0-7.0); Lymphocytes # (auto) 1.8 10 ^3/uL (0.4-5.4); Lymphocytes % (auto) 22.9 % (10.0-50.0); Mean Corpuscular Hemoglobin 33.5 pg (28.0-32.0); Mean Corpuscular Hgb Conc. 33.2 g/dL (32.0-36.0); Mean Corpuscular Volume 100.7 fL (80.0-100.0); Monocytes # (auto) 0.7 10 ^3/uL (0-1.3); Monocytes % (auto) 8.5 % (0.0-12.0); Neutrophils # (auto) 5.4 10 ^3/uL (1.6-8.6); Neutrophils % (auto) 66.4 % (37.0-80.0); Nucleated Red Blood Cells % 0.2 %; Platelet Count (auto) 120 10^3/uL (140-450); Red Blood Cells 4.17 10^6/uL (4.0-5.20); Red Cell Distribution Width 13.8 % (11.8-14.3); White Blood Cell 8.1 10^3/uL (4.4-10.8)
[2024-07-17 12:14] LABS: Alanine Aminotransferase 10 U/L (7-40); Albumin 4.3 g/dL (3.2-4.8); Alkaline Phosphatase 94 U/L (46-116); Anion Gap 9 (5-15); Aspartate Aminotransferase 17 U/L (13-40); BUN/Creatinine Ratio 17.1 (10.0-20.0); Bilirubin, Total 0.3 mg/dL (0.2-1.0); Blood Urea Nitrogen 12 mg/dL (9-23); Calcium 9.3 mg/dL (8.7-10.4); Carbon Dioxide 22 mmol/L (20-31); Chloride 106 mmol/L (98-107); Glucose 117 mg/dL (74-106); Potassium 3.7 mmol/L (3.5-5.1); Sodium 137 mmol/L (136-145); Total Protein 6.3 g/dL (5.7-8.2)
[2024-07-17] MEDS: PANTOPRAZOLE 40 MG/10 ML VIAL INJ IV ONE (12:52)
[2024-07-17 12:59] LABS: Urine Bacteria FEW /hpf (None Seen); Urine Blood Negative /uL (Negative); Urine Budding Yeast OCCASIONAL /hpf (None Seen); Urine Clarity Clear (Clear); Urine Color Light-Yellow (Yellow); Urine Protein, UAD Negative (Negative); Urine Specific Gravity 1.014 (1.001-1.035); Urine Squamous Epithelial Cell FEW /hpf (<5); Urine Urobilinogen Normal (Negative); Urine WBC 5 /HPF (0-5); Urine pH 5.5 (5.0-9.0)
[2024-07-17 15:22] VITALS: TEMP 99.2
--- NOTE | 2024-07-17 16:12 | DVH ---
Exam: CT CT AB PEL WO CON-NO ORAL OR IV History: ABDOMINAL PAIN Comparison Study: CT CT AB PEL WITH ORAL CON ONLY on DOS: 01/15/24 TECHNIQUE: Multidetector CT of the abdomen and pelvis was performed from lung bases to pubic symphysi s. Imaging was performed without IV contrast. Axial, coronal, and sagittal multiplanar reformats were obtained from the axial data set by the technologist. RADIATION DOSE: DLP 786.64 mGy.cm; CTDI vol 15.36 mGy. Findings: Lungs: The lung bases are clear. Heart: No cardiomegaly or pericardial effusion. Liver: Unremarkable. Gallbladder: Unremarkable. Spleen: Unremarkable Pancreas: Unremarkable Adrenals: Unremarkable Kidneys: Unremarkable GI tract: Diverticulosis without evidence of acute diverticulitis. Moderate fecal burden. : Unremarkable. Vasculature: Unremarkable Lymphadenopathy: Absent Peritoneum: No ascites Musculoskeletal: Mild multilevel degenerative changes of the thoracolumbar spine. Soft tissues: Small fat containing ventral hernia. Impression: 1. No acute abdominopelvic abnormalities. 2. Diverticulosis without evidence of acute diverticulitis. 3. Moderate fecal burden.
[2024-07-17 18:41] VITALS: BP 132/87; PULSE 62; RESP 15; O2SAT 95
[2024-07-17] MEDS ORDERED: HYDROcodone-ACET 5/325MG TAB PO PRN (19:00)
[2024-07-17] MEDS ORDERED: DEXTROSE (50%) 50ML SYRG IV PRN (19:00)
[2024-07-17] MEDS ORDERED: ACETAMINOPHEN 325 MG TAB PO PRN (19:00)
[2024-07-17] MEDS ORDERED: ONDANSETRON HCL 4 MG/2 ML VIAL IV PRN (19:00)
--- NOTE | 2024-07-17 20:32 | DVHHP2 ---
History of Present Illness Reason for Visit: Abdominal pain History of Present Illness 74-year-old female presents for evaluation of pain. Patient endorses a two day history of abdominal pain that radiates to. She reports episodes of nausea with vomiting. Denies fever or chills. Meet emesis or melena. No cardiac or respiratory symptoms. Past Medical History Hypertension, diabetes mellitus,, seizures Past Surgical History Hernia repair tonsillectomy, appendectomy, colon resection, left shoulder surgery Family History Noncontributory Smoke: <1 pack per day ALCOHOL: occassional Drugs: None Lives: with Family Review of Systems Review of Systems Review of systems are currently negative otherwise addressed HPI. Allergies: Coded Allergies: NO KNOWN ALLERGIES (Unverified , 10/09/21) Medications Current Medications Medications Dose Ordered Sig/Chaz Route Start Time Stop Time Status Last Admin Dose Admin Pantoprazole Sodium 40 mg DAILY@0600 PO 07/18/24 06:00 Diagnostic Test (Pha) 1 strip ACHS 07/17/24 22:00 Insulin Human Regular ACHS SC 07/17/24 22:00 Dextrose 50 ml UD PRN IV 07/17/24 19:00 Acetaminophen/ Hydrocodone Bitart 1 tab Q4HP PRN PO 07/17/24 19:00 Ondansetron HCl 4 mg Q4HP PRN IV 07/17/24 19:00 Acetaminophen 650 mg Q6HP PRN PO 07/17/24 19:00 Exam Vital Signs Vital Signs Date Time Temp Pulse Resp B/P (MAP) Pulse Ox O2 Delivery O2 Flow Rate FiO2 07/17/24 18:41 62 15 132/87 (102) 95 07/17/24 15:22 99.2 99.2 07/17/24 10:52 Room Air* 0 21 Exam Gen: 74 female in mild distress Skin: Warm, dry, normal color and texture, no rash. HEENT: Normocephalic atraumatic, mucous membranes moist and pink. Neck: Cervical and supraclavicular nodes normal without enlargement, trachea is midline, thyroid gland is normal without masses. Pulmonary: Clear to auscultation and percussion bilaterally. Cardiac: Regular rate and rhythm. No murmur Abdomen: Soft, abdominal tenderness, nondistended, bowel sounds present all 4 quadrants, no guarding, no rigidity, no organomegaly. Extremities: No cyanosis, clubbing, no edema Neuro: Cranial nerves II through XII grossly intact, normal affect and speech, no focal motor deficits. Labs/Xrays ORDERING PHYSICIAN: PEDRO PABLO KAPLAN MD PROCEDURE(s): ABPL - CT AB PEL WO CON-NO ORAL OR IV REASON: ABDOMINAL PAIN ORDER NUMBER(s): [id number], ACCESSION NUMBER(s): [id number] Exam: CT CT AB PEL WO CON-NO ORAL OR IV History: ABDOMINAL PAIN Comparison Study: CT CT AB PEL WITH ORAL CON ONLY on DOS: 01/15/24 TECHNIQUE: Multidetector CT of the abdomen and pelvis was performed from lung bases to pubic symphysis. Imaging was performed without IV contrast. Axial, coronal, and sagittal multiplanar reformats were obtained from the axial data set by the technologist. RADIATION DOSE: DLP 786.64 mGy.cm; CTDI vol 15.36 mGy. Findings: Lungs: The lung bases are clear. Heart: No cardiomegaly or pericardial effusion. Liver: Unremarkable. Gallbladder: Unremarkable. Spleen: Unremarkable Pancreas: Unremarkable Adrenals: Unremarkable Kidneys: Unremarkable GI tract: Diverticulosis without evidence of acute diverticulitis. Moderate fecal burden. : Unremarkable. Vasculature: Unremarkable Lymphadenopathy: Absent Peritoneum: No ascites Musculoskeletal: Mild multilevel degenerative changes of the thoracolumbar spine. Soft tissues: Small fat containing ventral hernia. Impression: 1. No acute abdominopelvic abnormalities. 2. Diverticulosis without evidence of acute diverticulitis. 3. Moderate fecal burden. Labs Test 07/17/24 12:00 07/17/24 11:21 Range/Units Urine Color Light-yellow Yellow Urine Clarity Clear Clear Urine pH 5.5 5.0-9.0 Urine Specific [place] 1.014 1.001-1.035 Urine Protein Negative Negative Urine Ketones Negative Negative Urine Blood Negative Negative /uL Urine Nitrite Negative Negative Urine Bilirubin Negative Negative Urine Urobilinogen Normal Negative mg/dL Urine Leukocyte Esterase Trace Negative /uL Urine RBC 1 0 - 4 /hpf Urine Microscopic WBC 5 0-5 /HPF Urine Squamous Epithelial Cells Few <5 /hpf Urine Bacteria Few H None Seen /hpf Urine Yeast (Budding) Occasional None Seen /hpf Urine Glucose Trace Normal mg/dL White Blood Count 8.1 4.4-10.8 10^3/uL Red Blood Count 4.17 4.0-5.20 10^6/uL Hemoglobin 14.0 12.2-16.2 g/dL Hematocrit 42.0 36.0-46.0 % Mean Corpuscular Volume 100.7 H 80.0-100.0 fL Mean Corpuscular Hemoglobin 33.5 H 28.0-32.0 pg Mean Corpuscular Hemoglobin Concent 33.2 32.0-36.0 g/dL Red Cell Distribution Width 13.8 11.8-14.3 % Platelet Count 120 L 140-450 10^3/uL Mean Platelet Volume 10.7 6.9-10.8 fL Neutrophils (%) (Auto) 66.4 37.0-80.0 % Lymphocytes (%) (Auto) 22.9 10.0-50.0 % Monocytes (%) (Auto) 8.5 0.0-12.0 % Eosinophils (%) (Auto) 1.6 0.0-7.0 % Basophils (%) (Auto) 0.6 0.0-2.0 % Neutrophils # (Auto) 5.4 1.6-8.6 10 ^3/uL Lymphocytes # (Auto) 1.8 0.4-5.4 10 ^3/uL Monocytes # (Auto) 0.7 0-1.3 10 ^3/uL Eosinophils # (Auto) 0.1 0-0.8 10 ^3/uL Basophils # (Auto) 0.1 0-0.2 10 ^3/uL Nucleated Red Blood Cells 0.2 % Sodium Level 137 136-145 mmol/L Potassium Level 3.7 3.5-5.1 mmol/L Chloride Level 106 98-107 mmol/L Carbon Dioxide Level 22 20-31 mmol/L Anion Gap 9 5-15 Blood Urea Nitrogen 12 9-23 mg/dL Creatinine 0.70 0.550-1.02 mg/dL Glomerular Filtration Rate Calc 90 >90 mL/min BUN/Creatinine Ratio 17.1 10.0-20.0 Serum Glucose 117 H 74-106 mg/dL Lactic Acid Level 0.8 0.4-2.0 mmol/L Calcium Level 9.3 8.7-10.4 mg/dL Total Bilirubin 0.3 0.2-1.0 mg/dL Aspartate Amino Transferase (AST) 17 13-40 U/L Alanine Aminotransferase (ALT) 10 7-40 U/L Alkaline Phosphatase 94 46-116 U/L Total Protein 6.3 5.7-8.2 g/dL Albumin 4.3 3.2-4.8 g/dL Lipase 17 12-53 U/L Assessment/Plan Assessment/Plan Assessment Acute abdominal pain Uncontrolled diabetes mellitus Gastroenteritis Hypertension Admit the patient to Med surge to the hospitalist GI consultation Clear liquid diet Resume home medications Continue treatment per orders Plan discussed with: Patient My Orders Orders - MEKA RAYGOZA Procedure Category Date Status Time Pantoprazole Tablet PHA 07/18/24 In Process (Protonix Tablet) 06:00 * Gi Dvh Bag Patcher CONS 07/17/24 Transmitted 18:47 Glucose Blood PHA 07/17/24 In Process (Accu-Chek Comfort 22:00 Insulin R (Human) PHA 07/17/24 In Process (Insulin R) 22:00 Dextrose 50% Syringe PHA 07/17/24 In Process 19:00 Admit ADMIT 07/17/24 Transmitted 18:47 Hydrocodone-Acet PHA 07/17/24 In Process 5/325mg Tab ([place] 19:00 Ondansetron Hcl PHA 07/17/24 In Process (Zofran) 19:00 Condition: Stable LYLA 07/17/24 In Process 18:47 Acetaminophen Tablet PHA 07/17/24 In Process (Tylenol Tablet) 19:00 Bedrest With Bathroom LYLA 07/17/24 In Process Privileg 18:47 Date of Service: Jul 17, 2024 Billing Provider: MEAK RAYGOZA Common Visit Codes: [id number] INP/OBS CARE (MOD) MEKA RAYGOZA Jul 17, 2024 20:32
[2024-07-17] MEDS ORDERED: ACCU-CHEK COMFORT CURVE STRIP VI SCH (22:00)
[2024-07-17] MEDS ORDERED: InsuLIN REG 1unit/0.01ml Soln (100units/ml) SC SCH (22:00)
[2024-07-18] MEDS ORDERED: PANTOPRAZOLE 40 MG TAB PO SCH (06:00)
== END 2024-07-17 20:43 | disposition left against medical advice (07) | DRG 392 ==
LOC: EDBD 10:10 → ER 10:10 → OVERFLOW 18:47 → ER 18:52 → OVERFLOW 20:23
PROVIDERS: ADMIT Nurse Practitioner; ATTEND Nurse Practitioner
DX: K52.9 Noninfective gastroenteritis and colitis, unspecified (principal); I10 Essential (primary) hypertension; J45.909 Unspecified asthma, uncomplicated; F17.210 Nicotine dependence, cigarettes, uncomplicated; E11.9 Type 2 diabetes mellitus without complications; Z90.710 Acquired absence of both cervix and uterus; Z90.49 Acquired absence of other specified parts of digestive tract
CPT/HCPCS: 36415; 74176; 80053; 81001; 83605; 83690; 85025; 87040; G0378; J2405

== ENCOUNTER → 2024-08-02 | Outpatient (CLI) | payer MEDICARE | END | disposition home or self-care (01) | LOC: Rad HDHVI 13:54 | PROVIDERS: ATTEND Internal Medicine Cardiovascular Disease | DX: I10 Essential (primary) hypertension (principal) | CPT/HCPCS: 93306 ==

== ENCOUNTER → 2024-12-01 | Day surgery (SDC) | payer MEDICARE ==
[2024-11-29 11:21] LABS: Urine Bacteria None Seen /hpf (None Seen)
[2024-11-29 11:34] LABS: Basophils # (auto) 0.1 10 ^3/uL (0-0.2); Basophils % (auto) 1.1 % (0.0-2.0); Eosinophils # (auto) 0.1 10 ^3/uL (0-0.8); Eosinophils % (auto) 2.8 % (0.0-7.0); Hematocrit 35.5 % (36.0-46.0); Hemoglobin 11.8 g/dL (12.2-16.2); Lymphocytes # (auto) 1.6 10 ^3/uL (0.4-5.4); Lymphocytes % (auto) 30.4 % (10.0-50.0); Mean Corpuscular Hemoglobin 30.1 pg (28.0-32.0); Mean Corpuscular Hgb Conc. 33.1 g/dL (32.0-36.0); Mean Corpuscular Volume 91.1 fL (80.0-100.0); Monocytes # (auto) 0.4 10 ^3/uL (0-1.3); Monocytes % (auto) 8.1 % (0.0-12.0); Neutrophils % (auto) 57.6 % (37.0-80.0); Nucleated Red Blood Cells % 0.1 %; Platelet Count (auto) 116 10^3/uL (140-450); White Blood Cell 5.3 10^3/uL (4.4-10.8)
[2024-11-29 11:40] LABS: Urine Blood Negative /uL (Negative); Urine Clarity Clear (Clear); Urine Color Light-Yellow (Yellow); Urine Protein, UAD Negative (Negative); Urine Specific Gravity 1.028 (1.001-1.035); Urine Squamous Epithelial Cell FEW /hpf (<5); Urine Urobilinogen Normal (Negative); Urine WBC 4 /HPF (0-5); Urine pH 5.5 (5.0-9.0)
[2024-11-29 11:44] LABS: Partial Thromboplastin Time 25.6 SEC (24.5-34.5); Prothrombin Time 10.6 sec (9.3-11.8)
[2024-11-29 12:03] LABS: Alanine Aminotransferase < 9 U/L (7-40); Albumin 4.5 g/dL (3.2-4.8); Alkaline Phosphatase 115 U/L (46-116); Anion Gap 9 (5-15); Aspartate Aminotransferase 11 U/L (<34); BUN/Creatinine Ratio 26.2 (10.0-20.0); Bilirubin, Total 0.3 mg/dL (0.2-1.0); Blood Urea Nitrogen 17 mg/dL (9-23); Calcium 9.9 mg/dL (8.7-10.4); Carbon Dioxide 26 mmol/L (20-31); Chloride 107 mmol/L (98-107); Glucose 107 mg/dL (74-106); Potassium 4.6 mmol/L (3.5-5.1); Sodium 142 mmol/L (136-145); Total Protein 6.9 g/dL (5.7-8.2)
[~2024-12-01] VITALS: Ht 157.5 cm; Wt 63.5 kg
[~2024-12-01] MED LIST changes: -BACL10TA PO; +DOCU240C23 PO; +EMPA1TAB3 PO; -FENT12DI TD; +HYDR-4491 OR; -HYDR-4833 PO; +IBUP-1455 PO; +INS7030I SC; -INSLISPI SC; +OXYC-998 PO; +PHENYLEPHRINE HCL 10 MG/ML VL ONE; +POTA-211 PO; +PROPOFOL 10 MG/ML 20 ML IV ONE; +TIZA4CAP PO; +fentaNYL CITRATE 100 MCG/2 ML VL ONE
--- NOTE | 2024-12-01 08:22 | DVHHP2 ---
GI H&P Pre-Op Assessment Date: 12/01/24 Chief complaint: Abdominal pain, nausea, vomiting, thickened gastroduodenal junction on CT scan. HPI: per clinic note Past medical history: per clinic note Past surgical history: per clinic note Family history: per clinic note Physical exam: General: NAD, AAOX3 HEENT: PERRL, no scleral icterus, normal hearing, gums without lesions or bleeding, oropharynx clear without erythema or exudate. Neck: Supple without enlargement of the thyroid, or lymphadenopathy. Chest: Normal size and shape, no tenderness, lung alcantara clear to auscultation and percussion, nonlabored breathing. Heart: RRR, no murmur Abdomen: non-distended, no tenderness to palpation, +BS, no hepatosplenomegaly Extremities: no edema Neurological: CN II-XII intact, sensation intact in all extremities, 5+ strength in all extremities Skin: No rashes, No jaundice Assessment: - Abdominal pain, nausea, vomiting, thickened gastroduodenal junction on CT scan. Plan: - EGD - Risks (bleeding, infection, perforation, reaction to sedation medications and cardiopulmonary arrest) and benefit of the procedure were explained to patient. Patient agrees to undergo the procedure. NAIF FERRARO MD Dec 01, 2024 08:22
[2024-12-01 08:23] VITALS: PULSE 58; RESP 12; TEMP 97.4; O2SAT 93
--- NOTE | 2024-12-01 08:24 | DVHOP2 ---
Operative Report DATE OF OPERATION: 12/01/24 PROCEDURE: Upper Endoscopy. PREOPERATIVE INDICATION: The patient is a 74 -year-old female undergoing endoscopy for abdominal pain, nausea, vomiting, thickened gastroduodenal junction on CT scan. POSTOPERATIVE DIAGNOSES: 1. Duodenitis in the duodenal bulb. 2. Mild gastritis PROCEDURE PERFORMED BY: Dale Abrams SCOPE: Olympus videoendoscope. ASA CLASS: 3 PREOPERATIVE MEDICATIONS: MAC with Dr Patel PROCEDURE IN DETAIL: After obtaining an informed consent, the patient was placed on left lateral decubitus position. The patient was then sedated with the above medications. A bite block was placed between her teeth. The endoscope was then passed through the oropharynx, into the esophagus, and through the stomach and pylorus up to the second and third part of the duodenum. There was mild duodenitis in the duodenal bulb. There was mild gastritis. Gastric biopsy obtained using cold forceps. The GE junction was normal in appearance at 37 cm. The esophagus was normal in the appearance. The endoscope was then withdrawn. The patient tolerated the procedure well without difficulty. COMPLICATIONS : None SPECIMENS: Gastric biopsies DISPOSITION: D/C to home PLAN: 1. Await for biopsy result 2. Continue with omeprazole and Carafate. DALE ABRAMS MD Dec 01, 2024 08:24
--- NOTE | 2024-12-01 08:24 | DVHDS2 ---
Physician Discharge Progress N Final Diagnosis: Gastritis, duodenitis Operations or Procedures: Operations or Procedures EGD with biopsy Condition on Discharge: Good Disposition: Home Discharge Instructions: Diet: Regular Activity: No Restrictions, As Tolerated Medications: Resume with previous home medications Follow Up Care: Discharge Statement: "Patient was advised to return to the ER or call 911 if any headaches, dizziness, shortness of breath, chest pain, abdominal pain, bleeding, fevers, or worsening of medical condition. Patient was counseled about treatment plan, medications, possible side effects, patientverbalized understanding. All questions were answered to the best of my ability. This discharge took greater then 30 minutes in planning, reviewing documenta tion, counseling the patient, and discussing with other team members." NAIF FERRARO MD Dec 01, 2024 08:24
[2024-12-01 08:38] VITALS: BP 119/48; PULSE 60; RESP 12; O2SAT 98
== END | disposition home or self-care (01) ==
LOC: GI 06:50
PROVIDERS: ATTEND Internal Medicine Gastroenterology
DX: R10.11 Right upper quadrant pain (principal); K29.50 Unspecified chronic gastritis without bleeding; R11.2 Nausea with vomiting, unspecified; R93.3 Abnormal findings on diagnostic imaging of other parts of digestive tract; K59.00 Constipation, unspecified; K29.80 Duodenitis without bleeding; E11.9 Type 2 diabetes mellitus without complications; M19.90 Unspecified osteoarthritis, unspecified site; F17.210 Nicotine dependence, cigarettes, uncomplicated; Z79.4 Long term (current) use of insulin; Z79.84 Long term (current) use of oral hypoglycemic drugs; Z79.899 Other long term (current) drug therapy; Z90.49 Acquired absence of other specified parts of digestive tract; Z98.890 Other specified postprocedural states; Z88.8 Allergy status to other drugs, medicaments and biological substances
CPT/HCPCS: 36415; 43239; 80053; 81001; 82962; 85025; 85610; 85730; 88305; 88312; 88342; J2371; J2704; J3010

== ENCOUNTER → 2025-01-10 | Outpatient (CLI) | payer MEDICARE ==
[~2025-01-10] MED LIST changes: -PHENYLEPHRINE HCL 10 MG/ML VL ONE; -PROPOFOL 10 MG/ML 20 ML IV ONE; +READI-CAT 2 (BARIUM SULF)(VANILLA SMOOTHIE) 450ML ONE; -fentaNYL CITRATE 100 MCG/2 ML VL ONE
--- NOTE | 2025-01-10 17:38 | DVH ---
Exam: CT CT AB PEL WITH ORAL CON ONLY History: ABD PAIN Comparison Study: CT CT AB PEL WITH ORAL CON ONLY on DOS: 07/29/24, CT CT AB PEL WO CON-NO ORAL OR IV on DOS: 07/17/24, CT CT AB PEL WITH ORAL CON ONLY on DOS: 01/15/24 Technique: Multidetector spiral CT of the abdomen and pelvis was performed from lung bases to pubic symphysis. Imaging was performed without IV contrast. Axial, coronal and sagittal multiplanar reform ats were obtained from the axial data set by the technologist. Radiation dose : Abdomen/Pelvis: CTDIvol 5.51 mGy, DLP 253.23 mGy*cm. Findings: Evaluation of solid organs is limited due to lack of intravenous contrast use. Lung Bases: No acute or significant lung base finding. Normal heart size. No pleural or pericardial effusion. Liver: The liver is normal in size. No focal lesions. Gallbladder and biliary Tree: Unremarkable Spleen: Unremarkable Pancreas: The pancreas is grossly normal in appearance. Adrenal Glands: Unremarkable Kidneys: Kidneys are grossly normal without calculi or hydronephrosis. Bladder: Obscured by metallic artifact. Bowel: Gastric thickening in the region of the pylorus again noted. Postsurgical changes in the sigmo id colon. No evidence of bowel obstruction. Appendix not identified, could be obscured by metallic ar tifact. Ascites: Absent Lymphadenopathy: No mesenteric, retroperitoneal or periportal lymphadenopathy. Abdominal wall and Mesentery: Postsurgical changes anterior abdominal wall. Vasculature: The visualized abdominal aorta is normal in size and caliber. Evaluation of abdominal a nd pelvic vessels is limited due to lack of intravenous contrast. Pelvic Organs: Obscured or absent. Musculoskeletal: Levoscoliosis with associated multilevel degenerative disease. Bilateral total hip arthroplasty. IMPRESSION: 1. No acute abdominal or pelvic findings. Gastric thickening in the region of the pylorus again noted . Limited evaluation of the pelvis. Radiation optimization: All CT scans at this facility use at least one of these dose optimization stefani hniques: Automated exposure control mA and/or kV adjustment per patient size (includes targeted exams where dose is matched to clinical indication) or iterative reconstruction. HS:Y
== END | disposition home or self-care (01) ==
LOC: Rad HDHVI 11:07
PROVIDERS: ATTEND Internal Medicine Cardiovascular Disease
DX: K52.9 Noninfective gastroenteritis and colitis, unspecified (principal); K31.89 Other diseases of stomach and duodenum; R10.9 Unspecified abdominal pain; M41.80 Other forms of scoliosis, site unspecified; M47.819 Spondylosis without myelopathy or radiculopathy, site unspecified; Z96.643 Presence of artificial hip joint, bilateral; Z98.890 Other specified postprocedural states
CPT/HCPCS: 74176